=== PATIENT | female | born 1960 | race Caucasian/White ===

== ENCOUNTER → 2017-01-12 06:03 | Day surgery (SDC) | payer BC ==
--- NOTE | 2017-01-09 23:05 | HP ---
HISTORY AND PHYSICAL: DATE OF ADMISSION/SURGERY: 01/12/17 SURGEON: Suzanne Jain MD PROCEDURE: Left knee arthroscopy with partial medial meniscectomy, possible chondroplasty, possible synovectomy. The surgery is scheduled for 01/12/[address] Jain. PAST MEDICAL HISTORY: Migraines, chronic fatigue, questionable thyroid disease. PAST SURGICAL HISTORY: , sinus surgery, right tibia fracture surgery. CURRENT MEDICATIONS: 1. Mobic. 2. Flexeril. 3. Axert. 4. [place]. 5. Climara patch. 6. Progesterone. 7. [place] Thyroid. 8. Naltrexone. ALLERGIES: None. FAMILY HISTORY: Hypertension and high cholesterol. SOCIAL HISTORY: She is a 56-year-old female. She is . She works in [employer]. 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 She uses alcohol socially. REVIEW OF SYSTEMS: A complete 14-point review of systems was reviewed with the patient and all was negative or noncontributory. PHYSICAL EXAMINATION GENERAL: She is well developed, well nourished, in no acute distress. VITAL SIGNS: She stands 5 feet 8 inches tall, weighs 210 pounds. Her blood pressure is 114/82 and heart rate 78. HEENT: Normocephalic, atraumatic. NECK: Supple. No palpable lymph nodes. Trachea is midline. PULMONARY: The lungs are clear to auscultation bilaterally. No wheezes, rhonchi, or rales. CARDIO: Regular rate and rhythm. Strong S1, S2. No murmurs, gallops, or rubs. No peripheral edema. ABDOMEN: Soft, nontender, nondistended. NEUROLOGICAL: She is alert and oriented x3. Cranial nerves II through XII are intact. MUSCULOSKELETAL: Left lower extremity: The skin is intact. There is a mild joint effusion. Tenderness over the medial joint line. All of her lower extremity muscle group strengths are intact at 5/5. She has intact sensation. She walks with a slightly antalgic-type gait favoring her left leg. DIAGNOSTIC STUDIES: An MRI of the left knee was completed, 12/20/16, which shows a medial meniscal tear with a fragment to the medial joint recess as well as a grade 1 MCL sprain and a small joint effusion. ASSESSMENT AND PLAN: Ms. Clark is a 56-year-old female with complaints of left knee pain. An MRI showed a left medial meniscus tear and she has elected to proceed with left knee arthroscopy with partial medial meniscectomy. The surgery is scheduled for 01/12/[address] Jain discussed the risks and benefits of the surgery at today's visit and all of her questions were answered. Percocet as well as Zofran were sent to her pharmacy for postoperative pain control and nausea. She will see Dr. Jain back 10 to 14 days after the surgery. EDSON LICEA [id number]/[facility] #: [id number] [facility] HOSPITALEkaterina
[~2017-01-12 06:03] MED LIST: Buffered Lidocaine 1% SYR 3ML* 3 ML/SYR SYRINGE INTRADERM ONE; Bupivacaine 0.5% SDV PF* 30 ML VIAL ONE; Dexamethasone IV* 4 MG/ML 1 ML (4 MG) ONE; EPINEPHrine AMP 1 MG/ML ONE; Famotidine IV* 10 MG/ML 2 ML (20 mg) IV ONE; Famotidine IV* 10 MG/ML 2 ML (20 mg) ONE; Gabapentin CAP(*) 300 MG ONE; Gabapentin CAP(*) 300 MG PO ONE; HYDROcodone/ACETAMIN 5-325 MG* 1 TAB ONE; KETAMINE HCL* 50 MG/ML 10 ML VIAL ONE; Ketorolac INJ* 30 MG/ML 1 ML VIAL ONE; Lidocaine 2% PF * 5 ML VIAL ONE; Midazolam* 1 MG/ML 5 ML VIAL (5 MG) ONE; Morphine INJ* 10 MG/ML 1 ML CARPUJECT ONE; Morphine INJ* 2 MG/ML 1 ML CARPUJECT IV PRN; Ondansetron INJ* 2 MG/ML VIAL ONE; PROCHLORPERAZINE INJ 5 MG/ML 2 ML VIAL IV PRN; Propofol* 10 MG/ML 20 ML BTL IV PUSH ONE; Scopolamine 1.5 mg* PATCH ONE; Scopolamine 1.5 mg* PATCH TRANSDERM ONE; Scopolamine PATCH Remove* 1 NOTE MISC PATCH OFF ONE; ceFAZolin 2 GM PREMIX (*) 2 GM/50 ML BAG IVPB ONE; fentaNYL* 50 MCG/ML 2 ML VIAL (100 MCG VIAL) ONE; methylPREDNISolone ACETATE 80* 80 MG/ML 1 ML VIAL ONE
[2017-01-12] MEDS: fentaNYL* 50 MCG/ML 2 ML VIAL (100 MCG VIAL) IV PRN ×2 (09:01→09:23)
[2017-01-12 10:50] VITALS: BP 123/76
--- NOTE | 2017-01-13 00:45 | OP ---
DATE OF OPERATION: 01/12/17 - [facility] DATE OF : 64 FAMILY SURGEON: Suzanne Jain MD [employer]PR[employer]ISER SUPERVISOR: EDSON Antoine ANESTHESIOLOGIST: Dr. Diana. ANESTHESIA: General. PRE-OP DIAGNOSIS: Left knee pain with medial meniscal tear and osteoarthritis. POST-OP DIAGNOSIS: Left knee displaced tear of the body of the medial meniscal and severe tricompartmental osteoarthritis. OPERATIVE PROCEDURE: Left knee arthroscopy with partial medial meniscectomy and anterior synovectomy COMPLICATIONS: None. SPECIMEN: None. ESTIMATED BLOOD LOSS: Less than 25 cc. BRIEF HISTORY/INDICATIONS: Ms. Clark is a 56-year-old female who had a twisting injury to her left knee resulting in severe pain. Conservative treatment including anti-inflammatories, pain medications, physical therapy, brace wear and intra- articular injections failed to relieve her pain. Symptoms were consistent with a medial meniscal tear, which was confirmed on MRI. Plain radiographs also indicated osteoarthritis. The patient elected to undergo left knee arthroscopy with partial medial meniscectomy and possible chondroplasty/synovectomy due to continued pain and decreased quality of life. She understood the risks of surgery included, but were not limited to bleeding, infection, damage to nearby structures, continued pain, need for further surgery , stroke, heart attack, blood clot, and . She wished to proceed. INTRAOPERATIVE FINDINGS: Intraoperatively, the patient was noted to have a large linear tear in the body of the medial meniscus, which was displaced and flipped posteriorly into the posteromedial joint recess. This involved the white-red and white-white zone of the meniscus. She was noted to have grade 3 and 4 [place] cartilage changes involving the medial femoral condyle and the medial compartment, medial and lateral facet of the patella as well as the trochlear groove in the patellofemoral compartment, and the lateral tibial plateau and lateral femoral condyle of the lateral compartment. DESCRIPTION OF PROCEDURE: Ms. Clark was identified in the preanesthesia unit. Her left lower extremity was marked as the correct operative side. Informed consent was signed and placed in the chart. The patient was taken to the operating room and placed under general anesthesia without difficulty. Left lower extremity was prepped and draped in the usual sterile fashion. Preop time-out was made to correctly identify the patient's side and site. Appropriate perioperative antibiotics were given within 1 hour of incision. A one-half centimeter anterolateral portal incision was made and carried down to the capsule with a 15 blade. Trocar was introduced. As soon as the light and water sources were turned on, there was immediate visualization of the suprapatellar pouch. The suprapatellar pouch had no obvious abnormality. The patellofemoral compartment had obvious grade 3 and 4 [place] cartilage changes involving the medial and lateral patellar facet. Visualization was made difficult by a large amount of anterior synovitis. Medial gutter had no loose body, but also a large amount of synovitis. Medial compartment was difficult to visualize, but there was an obvious displaced flipped fragment of the meniscus along the posteromedial joint. Medial compartment had grade 3 and 4 [place] cartilage changes involving the medial femoral condyle and along its weightbearing surface. ACL was difficult to visualize because of the anterior synovitis. [id number] position was unable to be performed due to decreased visualization due to anterior synovitis. Under direct visualization, a medial portal incision was made with a 15 blade. A shaver was introduced and an anterior synovectomy was performed. Any bleeding was controlled with radiofrequency ablation wand. This allowed a much improved view of the knee joint. Psswro-pw-mcza position showed grade 3 and 4 [place] cartilage changes along the lateral femoral condyle and lateral tibial plateau, but no obvious meniscal tear. A second tour of the joint was performed using a probe. No lateral meniscal tear was found. The flipped fragment of the medial meniscus was displaced back into the joint carefully with the probe. This was a long linear tear, which appeared to involve the white-red and a small portion of the red-red zone. This involved the main body of the medial meniscus. Straight biter as well as shutz biter and shaver were used to perform partial medial meniscectomy. A smooth border of the medial meniscus was obtained. This was further smoothed with the radiofrequency ablation wand. Further probing showed no other displaceable fragments of meniscus. At this point, the knee was copiously irrigated with sterile saline. All instruments were carefully removed. The incisions were closed using an interrupted 3-0 nylon suture. Intra-articular injection of 80 mg of Depo- Medrol and 6 cc of 0.25% Marcaine was placed in the knee joint. Sterile Xeroform, 4x4s and Webril were used to cover the incision. The Norman wrap and cold pack were placed over this. The patient's anesthesia was reversed without difficulty. She was taken to the PACU in stable condition. Intended weightbearing will be weightbearing as tolerated. Intended DVT prophylaxis will be aspirin. She will follow up in 2 weeks' time for suture removal. [id number]/[facility] #: [id number] MTDD
== END | disposition home or self-care (01) ==
LOC: OR 06:03
PROVIDERS: ATTEND Orthopaedic Surgery Adult Reconstructive Orthopaedic Surgery
DX: S83.242A Other tear of medial meniscus, current injury, left knee, initial encounter (principal); X50.1XXA Overexertion from prolonged static or awkward postures, initial encounter; Y92.9 Unspecified place or not applicable; Z79.1 Long term (current) use of non-steroidal anti-inflammatories (NSAID); M65.9 Synovitis and tenosynovitis, unspecified; M17.12 Unilateral primary osteoarthritis, left knee; M94.262 Chondromalacia, left knee; M22.42 Chondromalacia patellae, left knee; Z79.890 Hormone replacement therapy; R53.82 Chronic fatigue, unspecified
CPT/HCPCS: A9270-GY; J0171; J0690; J1040; J1100; J1885; J2250; J2270; J2405; J2704; J3010

== ENCOUNTER 2017-06-27 11:47 | Inpatient (IN) | payer BC ==
--- NOTE | 2017-06-20 14:50 | HP ---
HISTORY AND PHYSICAL: DATE OF OFFICE VISIT: 06/16/17 DATE OF SURGERY: 06/27/17 SURGEON: Suzanne Jain MD * (DICTATED BY EDSON LICEA) PROCEDURE: Right total knee arthroplasty. CHIEF COMPLAINT: Right knee pain. HISTORY OF PRESENT ILLNESS: Ms. Clark is a 56-year-old female with continued complaints of right knee pain. She has failed conservative management and has elected to proceed with a right total knee arthroplasty, which is scheduled for 06/27/[address] Jain. PAST MEDICAL HISTORY: Hypothyroidism, migraines. PAST SURGICAL HISTORY: , left knee arthroscopies, sinus surgery. CURRENT MEDICATIONS: 1. [place] Thyroid 30 mg daily. 2. Progesterone twice daily. 3. Climara patch. 4. Axert 12.5 mg. 5. Zyrtec, allergy. 6. L Glutamine. 7. Vitamin D. 8. Probiotic. 9. . 10. Dilaudid 2 mg. 11. . ALLERGIES: PERCOCET causing headaches and an upset stomach. FAMILY HISTORY: Diabetes and prostate cancer. SOCIAL HISTORY: She is a 56-year-old female, lives with her . 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 She uses occasional alcohol. REVIEW OF SYSTEMS: A complete 14-point review of systems was reviewed with the patient and was all negative except for thyroid disease. PHYSICAL EXAMINATION GENERAL: She is well developed, well nourished, in no acute distress. VITAL SIGNS: She stands 5 feet 8 inches tall, weighs 200 pounds, blood pressure is 109/76, heart rate is 81. HEENT: Normocephalic, atraumatic. NECK: Supple. No palpable lymph nodes. PULMONARY: Lungs are clear to auscultation bilaterally. CARDIO: Regular rate and rhythm. Strong S1, S2. ABDOMEN: Soft, nontender, nondistended. NEUROLOGIC: Alert and oriented x3. Cranial nerves II through XII are intact. MUSCULOSKELETAL: Right lower extremity, skin is intact. There are no open wounds or abrasions. There is a mild joint effusion. She has tenderness over the medial and lateral joint line. 2+ dorsalis pedis pulses. Intact sensation. Lower extremity muscle group strengths are intact at 5/5. ASSESSMENT AND PLAN: Ms. Clark is a 56-year-old female with continued complaints of right knee pain. She has failed conservative management and has elected to proceed with a right total knee arthroplasty, which is scheduled for 06/27/[address] Jain discussed the risks and benefits of the surgery at today's visit and all of her questions were answered. Dilaudid and Colace were sent to her pharmacy for postoperative pain control and Coumadin was sent for DVT prophylaxis. She will see Dr. Jain back 2 weeks after the surgery. EDSON LICEA [id number]/[facility] #: [id number] [facility] HOSPITALEkaterina
[~2017-06-27 11:47] MED LIST changes: +Buffered Lidocaine 0.9% SYRIN* 5 ML/SYR SYRINGE INTRADERM ONE; +Buffered Lidocaine 0.9% SYRIN* 5 ML/SYR SYRINGE ONE; -Buffered Lidocaine 1% SYR 3ML* 3 ML/SYR SYRINGE INTRADERM ONE; -Bupivacaine 0.5% SDV PF* 30 ML VIAL ONE; -Dexamethasone IV* 4 MG/ML 1 ML (4 MG) ONE; -EPINEPHrine AMP 1 MG/ML ONE; -Gabapentin CAP(*) 300 MG ONE; -Gabapentin CAP(*) 300 MG PO ONE; -HYDROcodone/ACETAMIN 5-325 MG* 1 TAB ONE; +HYDROmorphone* 1 MG/ML 1 ML SYR IV PRN; -KETAMINE HCL* 50 MG/ML 10 ML VIAL ONE; -Ketorolac INJ* 30 MG/ML 1 ML VIAL ONE; -Lidocaine 2% PF * 5 ML VIAL ONE; -Midazolam* 1 MG/ML 5 ML VIAL (5 MG) ONE; -Morphine INJ* 10 MG/ML 1 ML CARPUJECT ONE; -Morphine INJ* 2 MG/ML 1 ML CARPUJECT IV PRN; -Ondansetron INJ* 2 MG/ML VIAL ONE; -Propofol* 10 MG/ML 20 ML BTL IV PUSH ONE; -Scopolamine 1.5 mg* PATCH ONE; -Scopolamine 1.5 mg* PATCH TRANSDERM ONE; +Scopolamine 1.5 mg* PATCH TRANSDERM PRN; -Scopolamine PATCH Remove* 1 NOTE MISC PATCH OFF ONE; -ceFAZolin 2 GM PREMIX (*) 2 GM/50 ML BAG IVPB ONE; +ceFAZolin 2 GM PREMIX (*) 50 ML IVPB ONE; +fentaNYL* 50 MCG/ML 2 ML VIAL (100 MCG VIAL) IV PRN; -fentaNYL* 50 MCG/ML 2 ML VIAL (100 MCG VIAL) ONE; -methylPREDNISolone ACETATE 80* 80 MG/ML 1 ML VIAL ONE
[2017-06-27] MEDS ORDERED: KETAMINE HCL* 50 MG/ML 10 ML VIAL ONE (13:12)
[2017-06-27] MEDS ORDERED: Midazolam* 1 MG/ML 10 ML VIAL (10 MG) ONE (13:12)
[2017-06-27] MEDS ORDERED: Morphine PF AMP (0.5MG/ML)* 5 MG/10 ML AMP ONE (13:12)
[2017-06-27] MEDS ORDERED: fentaNYL* 50 MCG/ML 2 ML VIAL (100 MCG VIAL) ONE (13:12)
[2017-06-27] MEDS ORDERED: Ondansetron INJ* 2 MG/ML VIAL IV PRN (15:38)
[2017-06-27] MEDS ORDERED: EPHEDrine (Pressors)* 50 MG/ML VIAL IV PUSH PRN (15:38)
[2017-06-27] MEDS ORDERED: Lactated Ringers 500 ml BAG* 500 ML IV PRN (15:38)
[2017-06-27] MEDS ORDERED: Nalbuphine* 20 MG/ML 1 ML VIAL IV PRN (15:38)
[2017-06-27] MEDS ORDERED: Hetastarch in NS* 500 ML IV PRN (15:38)
[2017-06-27] MEDS ORDERED: PROCHLORPERAZINE INJ 5 MG/ML 2 ML VIAL IV PRN (15:38)
[2017-06-27] MEDS ORDERED: Ropivacaine 0.2% EPIDURAL* 200 MG/100 ML BAG EPIDURAL ONE (15:48)
[2017-06-27] MEDS ORDERED: Ropivacaine 0.2% EPIDURAL* 200 MG/100 ML BAG EPIDURAL SCH (16:00)
[2017-06-27] MEDS ORDERED: Hetastarch in NS* 500 ML IV ONE (16:31)
[2017-06-27] MEDS ORDERED: Phenylephrine INJ* 10 MG/ML 1 ML VIAL (10 MG) ONE (17:18)
[2017-06-27] MEDS ORDERED: Ondansetron INJ* 2 MG/ML VIAL ONE (17:18)
[2017-06-27] MEDS ORDERED: Dexamethasone IV* 4 MG/ML 1 ML (4 MG) ONE (17:18)
[2017-06-27] MEDS ORDERED: Lidocaine 2% PF * 5 ML VIAL ONE (17:18)
[2017-06-27] MEDS ORDERED: Propofol* 500 MG/50 ML BTL ONE (17:18)
[2017-06-27] MEDS ORDERED: Propofol* 10 MG/ML 20 ML BTL IV PUSH ONE (17:18)
[2017-06-27] MEDS ORDERED: Bupivacaine 0.5% SDV PF* 30 ML VIAL ONE (17:18)
[2017-06-27] MEDS ORDERED: Scopolamine 1.5 mg* PATCH ONE (17:18)
[2017-06-27] MEDS ORDERED: Bisacodyl SUPP* 10 MG SUPP PR PRN (17:32)
[2017-06-27] MEDS ORDERED: Polyethylene Glycol 3350* 17 GM PACKET PO PRN (17:38)
[2017-06-27] MEDS ORDERED: ALMOTRIPTAN 12.5 MG PO PRN (17:42)
[2017-06-27] MEDS ORDERED: PTO: LevoCETirizine TAB (NF) 5 MG TAB PO PRN (17:42)
[2017-06-27] MEDS ORDERED: Naloxone* 0.4 MG/ML 1 ML VIAL IV PRN (17:48)
[2017-06-27] MEDS ORDERED: Thyroid TAB* 30 MG PO SCH (18:00)
--- NOTE | 2017-06-27 18:39 | RAD ---
Indication: Immediate postop exam following RIGHT total knee replacement. Comparison: June 16, 2017 radiographs. Technique: Portable AP and cross table lateral views RIGHT knee. Report: Status post total knee replacement. Anterior surgical drain in place. Post-op fluid and gas is seen in the joint space and anterior subcutaneous tissues. Alignment is anatomic. No periprosthetic fracture evident. IMPRESSION: Unremarkable immediate postoperative appearance following RIGHT knee replacement.
[2017-06-27] MEDS: Magnesium Hydroxide LIQ* 30 ML UDC PO SCH (20:58)
[2017-06-27] MEDS ORDERED: Warfarin TAB(*) 6 MG PO ONE (21:00)
[2017-06-27] MEDS: Docusate CAP* 100 MG PO SCH (22:19)
[2017-06-27] MEDS: HYDROcodone/ACETAMIN 5-325 MG* 1 TAB PO PRN (22:19)
[2017-06-27] MEDS: PROGESTERONE TOPICAL SCH (22:34)
[2017-06-27] MEDS: ARMOUR THYROID 30 MG PO SCH (22:35)
[2017-06-27] MEDS: Ketorolac INJ* 30 MG/ML 1 ML VIAL IV PRN (22:43)
[2017-06-27] MEDS: ceFAZolin 1 GM VIAL(*) 1 GM in NS 0.9% 50 ML* 50 ML IVPB SCH (23:58)
--- NOTE | 2017-06-28 01:14 | CONS ---
CC: Dr. Suzanne Jain * CONSULTATION REPORT: DATE OF CONSULT: 06/27/17 REFERRING PHYSICIAN: Dr. Suzanne Jain. MY ATTENDING WHILE IN THE HOSPITAL: Dr. Chapin Steiner. (DICTATED BY EDSON LAMBERT) REASON FOR CONSULTATION: Comanagement of comorbid medical conditions. HISTORY OF PRESENT ILLNESS: Ms. Clark is a 56-year-old female with a past medical history significant for right knee osteoarthritis, hypothyroidism, and migraines. The patient is currently postop from a right total knee arthroplasty. The patient denies any pain at the moment. The patient states she feels pretty good except that she is shivering and she does not feel particularly cold. The patient denies any chest pain, shortness of breath, headache, dizziness, nausea, vomiting, or lightheadedness. The patient denies any increase in fatigue, decrease in exercise tolerance, swelling in her legs, or decrease in her exercise capacity in the time leading up to this surgery. The patient states that she gets migraines very infrequently and when she does have them, they resolve with Axert, but she was admitted to the hospital for intractable migraines last year and treated with a migraine cocktail including Reglan and Benadryl, which was effective for persistent migraines. The patient denies any abdominal pain, diarrhea, constipation, hematochezia, or changes in her urine, dysuria, or hematuria. The patient's migraines were precipitated by her previous sinus surgery. Patient has an AV malformation per previous records that does not need surgical intervention/ PAST MEDICAL HISTORY: Hypothyroidism, migraines. PAST SURGICAL HISTORY: , left knee arthroscopy, sinus surgery in right ear, right knee arthroplasty. CURRENT MEDICATION: 1. Garden of [place] raw probiotic 2 caps q.p.m. 2. L-glutamine 3000 mg p.o. b.i.d. 3. Barberry [place] grape 1000 unit capsules p.o. b.i.d. 4. Climara patch 0.1 mg daily. 5. Progesterone cream 60 mg 0.2 mL 0.1 mg topical b.i.d. 6. Xyzal 5 mg p.o. q.a.m. as needed. 7. Dilaudid 2 mg p.o. q.4 hours as needed. 8. Axert 12.5 mg p.o. b.i.d. as needed. 9. Flexeril 5 to 10 mg p.o. at bedtime as needed. 10. Futureplex DPRSN anti-tox 30 drops p.o. b.i.d. 11. [place] Thyroid 30 mg p.o. q.p.m. ALLERGIES: PERCOCET. FAMILY HISTORY: The patient denies a family history of cardiac disease. The patient attests to a family history of diabetes and prostate cancer. SOCIAL HISTORY: The patient is . 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 She uses alcohol infrequently. REVIEW OF SYSTEMS: The patient denies recent illnesses, fevers, chills. PHYSICAL EXAM: Vital Signs: Pulse rate 88, respiratory rate 18, oxygen saturation 100% on 2 L, blood pressure 120/78. General: The patient is a 56-year-old female that appears her stated age, who is sitting comfortably in the stretcher in the PACU. The patient is drowsy after her surgery. HEENT: Head is atraumatic and normocephalic. Pupils are equal, round, and reactive to light. Sclerae anicteric. Pharynx is nonerythematous. Mucous membranes moist. Neck: Supple. No lymphadenopathy. Cardiac: Regular rate and rhythm. No clicks, murmurs, gallops, or rubs. Radial posterior tibialis and dorsal pedis pulses 2+ bilaterally. No edema of the lower extremities. No carotid bruit auscultated. Respiratory: Clear to auscultation bilaterally. No wheezes, rales, or rhonchi. Good air exchange bilaterally. Abdomen: Soft, nontender, nondistended. Bowel sounds are normoactive in all 4 quadrants. No abdominal bruits auscultated. No hepatosplenomegaly. : No suprapubic tenderness. Skin: [place], dry, intact. Surgical site is covered by a large bandage and is unable to be assessed at this time. Neuro: Cranial nerves II to XII grossly intact. Sweatband Flanger strength is 5/5 bilaterally. The patient is unable to move lower extremity due to spinal anesthesia. DIAGNOSTIC STUDIES/LAB DATA: Laboratory results from 06/16/17, white blood cell 5.7, hemoglobin 14.5, hematocrit 43, platelets 167. INR 0.85, APTT 28.5. Sodium 136, potassium 4.2, chloride 106, carbon dioxide 27, anion gap 3, BUN 13 , creatinine 0.88, glucose 77, AST 18, ALT 20. Urine, yellow, clear, all negative. EKG shows normal sinus rhythm, early repolarization in lead V2, no other abnormalities of note. Chest x-ray read as no active cardiopulmonary disease. IMPRESSION: The patient is a 56-year-old female with a past medical history significant for hypothyroidism and migraines, who is currently postoperative from a total knee arthroplasty. The patient is in good health and is not currently in any distress. We will continue home medications to manage her chronic problems. 1. Postoperative state: The patient is in no pain and shows no signs of deep venous thrombosis. The patient is normotensive. We will continue pain control per primary team, antibiotics per primary team, bowel regimen per primary team, antiemetics per primary team. 2. Hypothyroidism: The patient is on 30 mg [place] Thyroid daily. She brought this medication with her and it will be continued in the hospital. 3. Migraines: The patient gets migraines infrequently, but has her home Axert ordered if needed. We will also order Reglan and Benadryl if Axert is not effective for migraines if they occur. 4. DVT prophylaxis: The patient is on Lovenox and is being started on Coumadin. SCDs are in place. 5. FEN: Per primary team. The patient is receiving lactated Ringer's at a rate of 125 mL an hour and is on clear liquids, advance as tolerated. 6. Code status: The patient is a full code. 7. Disposition: The patient will be transferred to the short-stay surgical care unit. TIME SPENT: Approximately 40 minutes were spent on this consult; 20 of which were spent [id number] with patient obtaining history and physical. EDSON LAMBERT [id number]/[facility] #: [id number] [place]
[2017-06-28] MEDS: HYDROcodone/ACETAMIN 5-325 MG* 1 TAB PO PRN ×2 (01:25→04:48)
[2017-06-28] MEDS ORDERED: HYDROmorphone TAB* 4 MG ONE (03:58)
--- NOTE | 2017-06-28 05:33 | OP ---
CONTINUATION ADDENDUM INCLUDED ON THIS REPORT DATE OF SURGERY: 06/27/17 - ROOM #342 DATE OF : 64 ATTENDING SURGEON: Suzanne Jain MD WINDOW GLASS INSTALLER: EDSON Cristina. Ms. Maddox did help throughout the procedure with preparation of the leg, wound retraction, manipulation of the knee and wound closure. ANESTHESIOLOGIST: Dr. Diana. ANESTHESIA: Spinal. PRE-OP DIAGNOSIS: Severe end-stage degenerative osteoarthritis of the right knee joint. POST-OP DIAGNOSIS: As above. OPERATIVE PROCEDURE: Right total knee arthroplasty. TOURNIQUET TIME: 49 minutes. ESTIMATED BLOOD LOSS: 250 cc. COMPLICATIONS: None. SPECIMENS: Bone and cartilage from the right knee joint sent to Pathology. HARDWARE USED: This is cemented [employer] total knee hardware. Two packages of Simplex bone cement. For the femur, a size 6 narrow right posterior stabilized Oxinium narrow femoral component. For the tibia, size 5 Mallory II right tibial base plate. For the patella, 35 mm 3 peg all poly patella. For the insert, a 11-mm posterior stabilized articular insert, size 5/ 6. CONTINUATION ADDENDUM: INDICATIONS: Ms. Clark is a 56-year-old female with years of increasingly severe right knee pain. Her plain radio-graphs and MRI confirmed advanced tricompartmental degenerative osteoarthritis of her knee. She failed conservative treatment with antiinflammatories, pain medications, and intraarticular injections. She had decreased quality of life and severe pain. She elected to undergo right total knee arthroplasty. Informed consent was obtained from the patient. She understood the risks of procedure included, but were not limited to bleeding, infection, damage to nearby structures, continued pain, need for further surgery, intraoperative fracture, nerve palsy, hardware failure and loosening, knee stiffness, loss of motion, stroke, heart attack, blood clot, and . She wished to proceed. The patient understood that due to her young age, she is at risk of early loosening and failure of the implant. She wished to proceed. INTRAOPERATIVE FINDINGS: Intraoperatively, the patient was noted to have osteopenia throughout the procedure. She has full thickness loss of cartilage in all 3 compartments of the knee. She had a 12-degree valgus deformity and 5- degree flexion contracture at the start of the case. These are both corrected to normal range of motion and alignment by the end of case. DESCRIPTION OF PROCEDURE: Ms. Clark was identified in the preanesthesia unit. Her right lower extremity was marked as the correct operative side. Informed consent was signed and placed in the chart. The patient was taken to the operating room and placed under spinal anesthesia. A Hunter catheter was placed. Tourniquet was placed on the right thigh. The right lower extremity was prepped and draped in the usual sterile fashion. Preop time-out was made to correctly identify the patient's side and site. Appropriate preoperative antibiotics were given within 1 hour of incision. Tourniquet was inflated until the tourniquet time for this procedure was 49 minutes. A 12-cm midline skin incision was made with a 10 blade and carried down to the extensor mechanism. A new 10 blade was used to make a standard medial parapatellar arthrotomy. Patella was subluxed laterally. The electrocautery was used to subperiosteally elevate soft tissue off the superomedial tibia to the midsagittal plane. The knee was flexed up. The anterior horn of the lateral meniscus and the ACL were sharply released. A drill was used to enter the distal femur. Intramedullary distal femoral cutting guide was pinned into proper position on the distal femur. Oscillating saw was used to make the distal femoral cut. 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 Next, the external rotational guide was pinned on the distal femur. Distal femur was sized to a size 6. Size 6 multi-cutting jig was pinned on the distal femur. The oscillating saw was used to make the appropriate 4 chamfer cuts. The PCL was completely released and the tibia was subluxed anteriorly. The extramedullary tibial cutting guide was pinned on the proximal tibia. The oscillating saw was used to make the appropriate proximal tibial cut. The bone was carefully removed. The knee was brought out into full extension. A spacer block had good fit with good medial and lateral ligamentous balancing. Flexion and extension gaps are well balanced. The knee was flexed up. Lamina mounter brass wind instruments was placed both medially and laterally. Any remaining meniscus was carefully removed using electrocautery. Any posterior osteophytes were removed using a curved osteotome. Tibial tray and drop gordy was placed to once again confirm a satisfactory proximal tibial cut. This was confirmed and alignment was satisfactory. A size 6 narrow right femoral trial was impacted on to the distal femur and had good fit. The box for the posterior stabilized implant was prepared using a reamer and box cut osteotome. A trial size 5 tibial tray and 5-mm insert trial were placed. The knee was taken through range of motion and was stable in all positions with full extension and 130 degrees of flexion. There was satisfactory patellofemoral tracking. The patella was everted. 9 mm of patellar bone and cartilage were carefully removed using an oscillating saw. The patella was sized to a size 35. The 3- peg holes were drilled through the size 35 guide. A trial 35 patella was placed and the knee was taken through a range of motion. The knee had good patellofemoral tracking. All trials were carefully removed. The tibia was subluxed anteriorly and sized to a size 5. Proximal tibia was prepared using a size 5 keel punch. Next, all bony cut surfaces were copiously irrigated with sterile saline and dried. Final implants were cemented into place starting with the tibia followed by the femur and lastly the patella. An 11-mm insert trial was placed while the knee was brought out into full extension. The tourniquet was turned down at 49 minutes. The cement was allowed to fully cure and the knee was copiously irrigated with sterile saline. Once the cement had fully cured, the insert trial was removed. Any excess cement was carefully removed from around the implant and capsule. Electrocautery was used to obtain meticulous hemostasis. Final insert was chosen was an 11-mm posterior stabilized insert, size 5/6. This was locked into position on the tibial tray without difficulty. Stability of the insert was checked and rechecked and noted to be stable. Final range of motion was full extension to 130 degrees of flexion with satisfactory patellofemoral tracking. The knee was once again copiously irrigated with sterile saline. The extensor mechanism was closed using interrupted #1 Vicryl's over a medium Hemovac drain. The rest of the incision was closed in a layered fashion using 0 and 2-0 Vicryl's. The skin was closed using running 3-0 nylon suture. Sterile Xeroform, 4x4's, and Webril were used to cover the incision. Norman wrap and cold pack were placed over this. The patient's anesthesia was reversed without difficulty. She was taken to the PACU in stable condition. Intended weightbearing will be weightbearing as tolerated. Intended DVT prophylaxis will be Coumadin with a Lovenox bridge. [id number]/CPS #: [id number] A- [id number]/CPS #: [id number] [facility]
--- NOTE | 2017-06-28 05:41 | OP ---
OPERATIVE REPORT: ADDENDUM: INDICATIONS: Ms. Clark is a 56-year-old female with years of increasingly severe right knee pain. Her plain radiographs and MRI confirmed advanced tricompartmental degenerative osteoarthritis of her knee. She failed conservative treatment with antiinflammatories, pain medications, and intraarticular injections. She had decreased quality of life . She elected to undergo right total knee arthroplasty. Informed consent was obtained from the patient. She understood the risks of procedure included, but were not limited to bleeding, infection, damage to nearby structures, continued pain, need for further surgery, intraoperative fracture, nerve palsy, hardware failure and loosening, knee stiffness, loss of motion, stroke, heart attack, blood clot, and . She wished to proceed. The patient understood that due to her young age, she is at risk of early loosening and failure to . She wished to proceed. INTRAOPERATIVE FINDINGS: Intraoperatively, the patient was noted to have osteopenia throughout the procedure. She has full thickness loss of cartilage in all 3 compartments of the knee. She had a 12-degree valgus deformity and 5- degree flexion contracture at the start of the case. These are both corrected to normal range of motion and alignment by the end of case. DESCRIPTION OF PROCEDURE: Ms. Clark was identified in the preanesthesia unit. Her right lower extremity was marked as the correct operative side. Informed consent was signed and placed in the chart. The patient was taken to the operating room and placed under spinal anesthesia. A Hunter catheter was placed. Tourniquet was placed on the right thigh. The right lower extremity was prepped and draped in the usual sterile fashion. Preop time-out was made to correctly identify the patient's side and site. Appropriate preoperative antibiotics were given within 1 hour of incision. Tourniquet was inflated until the tourniquet time for this procedure was 49 minutes. A 12-cm midline skin incision was made with a 10 blade and carried down to the extensor mechanism. A new 10 blade was used to make a standard medial parapatellar arthrotomy. Patella was subluxed laterally. The electrocautery was used to subperiosteally elevate soft tissue off the superomedial tibia to the midsagittal plane. The knee was flexed up. The anterior horn of the lateral meniscus and the ACL were sharply released. A drill was used to enter the distal femur. Intramedullary distal femoral cutting guide was pinned into proper position on the distal femur. Oscillating saw was used to make the distal femoral cut. 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 Next, the external rotational guide was pinned on the distal femur. Distal femur was sized to a size 6. Size 6 multi-cutting jig was pinned on the distal femur. The oscillating saw was used to make the appropriate 4 chamfer cuts. The PCL was completely released and the tibia was subluxed anteriorly. The extramedullary tibial cutting guide was pinned on the proximal tibia. The oscillating saw was used to make the appropriate proximal tibial cut. The bone was carefully removed. The knee was brought out into full extension. A spacer block had good fit with good medial and lateral ligamentous balancing. Flexion and extension gaps are well balanced. The knee was flexed up. Lamina branch operations specialist was placed both medially and laterally. Any remaining meniscus was carefully removed using electrocautery. Any posterior osteophytes were removed using a curved osteotome. Tibial tray and drop gordy was placed to once again confirm a satisfactory proximal tibial cut. This was confirmed and alignment was satisfactory. A size 6 narrow right femoral trial was impacted on to the distal femur and had good fit. The box for the posterior stabilized implant was prepared using a reamer and box cut osteotome. A trial size 5 tibial tray and 5-mm insert trial were placed. The knee was taken through range of motion and was stable in all positions with full extension and 130 degrees of flexion. There was satisfactory patellofemoral tracking. The patella was everted. 9 mm of patellar bone and cartilage were carefully removed using an oscillating saw. The patella was sized to a size 35. The 3- peg holes were drilled through the size 35 guide. A trial 35 patella was placed and the knee was taken through a range of motion. The knee had good patellofemoral tracking. All trials were carefully removed. The tibia was subluxed anteriorly and sized to a size 5. Proximal tibia was prepared using a size 5 keel punch. Next, all bony cut surfaces were copiously irrigated with sterile saline and dried. Final implants were cemented into place starting with the tibia followed by the femur and lastly the patella. An 11-mm insert trial was placed while the knee was brought out into full extension. The tourniquet was turned down at 49 minutes. The cement was allowed to fully cure and the knee was copiously irrigated with sterile saline. Once the cement had fully cured, the insert trial was removed. Any excess cement was carefully removed from around the implant and capsule. Electrocautery was used to obtain meticulous hemostasis. Final insert was chosen was an 11-mm posterior stabilized insert, size 5/6. This was locked into position on the tibial tray without difficulty. Stability of the insert was checked and rechecked and noted to be stable. Final range of motion was full extension to 130 degrees of flexion with satisfactory patellofemoral tracking. The knee was once again copiously irrigated with sterile saline. The extensor mechanism was closed using interrupted #1 Vicryl's over a medium Hemovac drain. The rest of the incision was closed in a layered fashion using 0 and 2-0 Vicryl's. The skin was closed using running 3-0 nylon suture. Sterile Xeroform, 4x4's, and Webril were used to cover the incision. Norman wrap and cold pack were placed over this. The patient's anesthesia was reversed without difficulty. She was taken to the PACU in stable condition. Intended weightbearing will be weightbearing as tolerated. Intended DVT prophylaxis will be Coumadin with a Lovenox bridge. [id number]/[facility] #: [id number] [place]
[2017-06-28] MEDS ORDERED: Ondansetron TAB* 4 MG PO PRN (06:00)
[2017-06-28] MEDS ORDERED: Ondansetron INJ* 2 MG/ML VIAL IV PRN (06:00)
[2017-06-28 07:11] LABS: Hematocrit 28 % (35-47); Hemoglobin 9.4 g/dl (12.0-16.0)
[2017-06-28 07:27] LABS: BUN/Creatinine Ratio 14.3 (8-20); Calcium 8.2 mg/dL (8.6-10.3); EGFR African American 90.9 (>60); EGFR Non-African American 70.7 (>60); Potassium 4.2 mmol/L (3.5-5.0)
[2017-06-28] MEDS: Ketorolac INJ* 30 MG/ML 1 ML VIAL IV PRN ×2 (07:44→16:10)
[2017-06-28] MEDS: ceFAZolin 1 GM VIAL(*) 1 GM in NS 0.9% 50 ML* 50 ML IVPB SCH ×2 (08:31→16:05)
[2017-06-28] MEDS: Magnesium Hydroxide LIQ* 30 ML UDC PO SCH ×2 (08:32→21:41)
[2017-06-28] MEDS: Docusate CAP* 100 MG PO SCH ×2 (08:32→21:40)
[2017-06-28] MEDS: PROGESTERONE TOPICAL SCH ×2 (08:33→21:46)
[2017-06-28] MEDS ORDERED: ESTRADIOL TRANSDERM SCH (09:00)
[2017-06-28] MEDS ORDERED: [UNRECOGNIZED DRUG - OTHER] TRANSDERM SCH (09:00)
--- NOTE | 2017-06-28 09:14 | PN ---
Progress Note - Progress Note Date of Service: 06/28/17 Note: Anesthesia duramorph folowup. Alert, VSS, epidural out neuro and site ok. Had pain last PM, oral dilaudid helped. s/p TKR continue oral meds..
--- NOTE | 2017-06-28 09:41 | PN ---
Progress Note - Progress Note Date of Service: 06/28/17 SOAP: Subjective: []Patient seen OOB in chair, doing well, pain right knee well managed. Denies, CP, SOB or dizziness. Objective: [] Vital Signs Temp 98.4 F 06/28/17 07:27 Pulse 62 06/28/17 07:27 Resp 14 06/28/17 08:00 BP 102/58 06/28/17 07:27 Pulse Ox 99 06/28/17 08:00 Intake & Output 06/27/17 06/28/17 06/28/17 18:59 06:59 18:59 Intake Total 50 2133 225 Output Total 1300 2150 Balance -1249 225 Weight 201 lb 12.8 oz Intake: IV Fluids 50 630 CEFAZOLIN 2GM IV 50 LR 630 IVPB 53 ABX - CEFAZOLIN 53 Oral 1450 225 Output: Hemovac Amount #1 350 Hunter 950 2150 Laboratory Results - last 24 hr 06/28/17 06/28/17 06/28/17 06:42 06:42 06:42 Hgb 9.4 L Hct 28 L INR (Anticoag Therapy) 1.06 Sodium 137 Potassium 4.2 Chloride 105 Carbon Dioxide 28 Anion Gap 4 BUN 12 Creatinine 0.84 Est GFR ( Amer) 90.9 Est GFR (Non-Af Amer) 70.7 BUN/Creatinine Ratio 14.3 Glucose 144 H Calcium 8.2 L Right knee hemovac drain discontinued without difficulty, tip intact YAHAIRA clean and dry calf NT and soft +DF/PF right ankle sensation and circulation intact distally Assessment: []s/p Right total knee arthroplasty POD #1 Plan: []PT/OT WBAT RLE Coumadin with Lovenox bridge- 8 mg today Discussed osteoporotic bone quality- await Vit D levels, she will suppliment with Calcium w Vit D as an outpatient and w/d with PCP, consider DEXA scan in future
[2017-06-28] MEDS: Morphine TAB Extended Release (*) 30 MG TAB.ER PO SCH ×2 (09:42→21:40)
[2017-06-28] MEDS ORDERED: HYDROmorphone TAB* 2 MG PO PRN (10:00)
[2017-06-28] MEDS ORDERED: diPHENhydraMINE PO* 25 MG PO PRN (10:00)
[2017-06-28] MEDS ORDERED: HYDROmorphone TAB* 4 MG PO PRN (10:00)
[2017-06-28] MEDS ORDERED: diPHENhydraMINE IV* 50 MG/ML 1 ml VIAL (BENADRYL) IV PRN (10:00)
[2017-06-28] MEDS: HYDROmorphone TAB* 4 MG PO PRN ×2 (10:47→15:16)
[2017-06-28] MEDS ORDERED: Warfarin TAB(*) 4 MG PO ONE (17:00)
[2017-06-28] MEDS: Morphine INJ* 10 MG/ML 1 ML SYRINGE IV PRN (17:51)
[2017-06-28] MEDS ORDERED: Enoxaparin(*) 30 MG/0.3 ML SYR SUBCUT SCH (18:00)
[2017-06-28] MEDS: ARMOUR THYROID 30 MG PO SCH (18:02)
[2017-06-28] MEDS: Cyclobenzaprine TAB* 10 MG PO PRN (21:40)
[2017-06-28] MEDS: HYDROmorphone TAB* 2 MG PO PRN (23:50)
[2017-06-29] MEDS: Ketorolac INJ* 30 MG/ML 1 ML VIAL IV PRN (03:39)
[2017-06-29 06:15] LABS: Hematocrit 23 % (35-47)
[2017-06-29 06:16] LABS: Comments Flag Yes
[2017-06-29] MEDS: Magnesium Hydroxide LIQ* 30 ML UDC PO SCH ×2 (08:11→20:35)
[2017-06-29] MEDS: Morphine TAB Extended Release (*) 30 MG TAB.ER PO SCH ×2 (08:11→20:35)
[2017-06-29] MEDS: Docusate CAP* 100 MG PO SCH ×2 (08:12→20:35)
[2017-06-29] MEDS: HYDROmorphone TAB* 4 MG PO PRN (08:12)
[2017-06-29] MEDS: PROGESTERONE TOPICAL SCH ×2 (08:15→20:36)
[2017-06-29] MEDS: Morphine INJ* 10 MG/ML 1 ML SYRINGE IV PRN (09:01)
--- NOTE | 2017-06-29 09:34 | PN ---
Progress Note - Progress Note Date of Service: 06/29/17 SOAP: Subjective: []Patient seen at bedside, having increased right knee and quad pain this morning. Denies SOB, CP or dizziness. Objective: [] Vital Signs Temp 99.5 F 06/29/17 08:03 Pulse 94 06/29/17 08:03 Resp 18 06/29/17 09:01 BP 91/56 06/29/17 08:03 Pulse Ox 95 06/29/17 08:03 Intake & Output 06/28/17 06/29/17 06/29/17 18:59 06:59 18:59 Intake Total 2325 1700 Output Total 1325 1750 Balance 1000 -50 Intake: IV Fluids 1360 ABX - CEFAZOLIN 110 LR 1250 Oral 965 1700 Output: Urine 1000 1750 Hunter 325 Other: # Bowel Movements 0 Laboratory Results - last 24 hr 06/29/17 06/29/17 05:41 05:41 Hgb 8.0 L Hct 23 L INR (Anticoag Therapy) 2.17 H right knee dressings were removed earlier by Dr. Jain and reportedly benign calf NT and soft +DF/PF right ankle sensation and circulation intact distally Assessment: []s/p RTK POD #2 Plan: []PT/OT WBAT RLE Coumadin Home later today if feeling better, otherwise 06/30
[2017-06-29] MEDS: Cyclobenzaprine TAB* 10 MG PO PRN (12:09)
[2017-06-29] MEDS ORDERED: Cyclobenzaprine TAB* 10 MG PO PRN (12:09)
[2017-06-29] MEDS: HYDROmorphone TAB* 2 MG PO PRN (13:02)
[2017-06-29] MEDS: Acetaminophen TAB* 325 MG PO PRN (17:41)
[2017-06-29] MEDS: ARMOUR THYROID 30 MG PO SCH (17:41)
[2017-06-29] MEDS ORDERED: Ketorolac INJ* 30 MG/ML 1 ML VIAL IV PUSH PRN (22:00)
[2017-06-30] MEDS: HYDROmorphone TAB* 2 MG PO PRN ×2 (02:15→09:09)
[2017-06-30] MEDS: Acetaminophen TAB* 325 MG PO PRN (03:29)
[2017-06-30] MEDS ORDERED: Scopolomine PATCH Remove* 1 NOTE MISC PATCH OFF ONE ×2 (05:54→15:42)
[2017-06-30 07:02] LABS: Hematocrit 26 % (35-47); Hemoglobin 8.9 g/dl (12.0-16.0)
[2017-06-30] MEDS: Docusate CAP* 100 MG PO SCH (07:42)
[2017-06-30] MEDS: Morphine TAB Extended Release (*) 30 MG TAB.ER PO SCH (07:42)
[2017-06-30] MEDS: Magnesium Hydroxide LIQ* 30 ML UDC PO SCH (07:43)
[2017-06-30] MEDS: PROGESTERONE TOPICAL SCH (07:44)
--- NOTE | 2017-06-30 09:43 | PN ---
Progress Note - Progress Note Date of Service: 06/30/17 SOAP: Subjective: []Patient seen OOB in chair. She is feeling much better today. Her pain is much more manageable. She feels ready to go home today. Objective: [] Laboratory Results - last 24 hr 06/29/17 06/30/17 06/30/17 05:38 06:47 06:47 Hgb 8.9 L Hct 26 L INR (Anticoag Therapy) 2.67 H Blood Type A Positive Antibody Screen Negative Crossmatch See Detail Vital Signs Temp 98.7 F 06/30/17 07:29 Pulse 98 06/30/17 07:29 Resp 16 06/30/17 09:09 BP 99/55 06/30/17 07:29 Pulse Ox 93 06/30/17 07:29 Intake & Output 06/29/17 06/30/17 06/30/17 18:59 06:59 18:59 Intake Total 1535 1810 100 Output Total 900 2100 300 Balance 635 -290 -200 Intake: IV Fluids 75 NS (0.9%) 75 Oral 1160 1810 100 Packed Cells 300 Output: Urine 900 2100 300 Other: Estimated Void Medium # Bowel Movements 0 # Voids 1 Right knee incision benign calf NT and soft +DF/PF right ankle Assessment: []s/p RTK POD #3 Plan: []PT/OT WBAT Stop Coumadin and discharge home on ASA 325 mg BID Follow up as scheduled with
[2017-06-30 11:44] LABS: Urine Bacteria Absent (Absent); Urine Bilirubin Negative (Negative); Urine Glucose Negative (Negative); Urine Nitrite Negative (Negative)
[2017-06-30 11:52] VITALS: BP 112/63
--- NOTE | 2017-07-01 00:54 | DS ---
DISCHARGE SUMMARY: DATE OF ADMISSION: 06/27/17 DATE OF DISCHARGE: 06/30/17 ATTENDING PHYSICIAN: Suzanne Jain MD * (DICTATED BY EDSON CONDE) ADMISSION DIAGNOSIS: Severe end-stage degenerative osteoarthritis, right knee. DISCHARGE DIAGNOSES: 1. Severe end-stage degenerative osteoarthritis, right knee. 2. Acute postoperative anemia. SURGERY PERFORMED: Right total knee arthroplasty. HOSPITAL COURSE: The patient is a 56-year-old female with years of increasingly right severe knee pain. Her MRI confirmed advanced tricompartmental degenerative osteoarthritis of her knee. The patient tried anti-inflammatories, pain medications, and intra-articular cortisone injections , which were not helpful emt intermediate. She elected to proceed with right total knee arthroplasty and was taken to the operating room under the care of Dr. Suzanne Jain on the date of 06/27/17. She tolerated the procedure well and left the operating room in stable condition. Postoperatively on day #2, she felt slightly dizzy and weak. She had a borderline hemoglobin and hematocrit and was transfused with one unit of packed red blood cells. She did feel much better on postop day #3 with an improved hemoglobin of 8.9 and hematocrit of 26. Her pain was also all much improved and she mastered all of her physical therapy and occupational therapy goals. Therefore, it was felt she was stable medically and orthopedically for discharge to home on the date of 06/30/17. CONDITION ON DISCHARGE: She is afebrile at 98.7, pulse 98, respiratory rate 14 , O2 sats 9%3 on room air, blood pressure 99/55. Her right knee incision is healing without evidence of infection. Her calf is soft and nontender. Her gross neurovascular status is intact. She has active dorsiflexion and plantarflexion of her right ankle. PLAN: Discharge to home bearing weight as tolerated on the right lower extremity. She will participate with physical therapy and it was decided that she would use ibuprofen or Aleve to help manage her pain. Therefore, we will discontinue the Coumadin for her DVT prophylaxis and switch her to aspirin 325 mg p.o. b.i.d. She is scheduled to follow up in the office in roughly 10 to 14 days for reevaluation. She will call the office if she has increased knee pain, any drainage redness, increased swelling, calf pain or swelling. EDSON CONDE [id number]/[facility] #: [id number] [facility] CENTEREkaterina
== END 2017-06-30 13:15 | disposition home health service (06) | DRG 302 ==
LOC: AA 11:47 → SSU 20:34
PROVIDERS: ADMIT Orthopaedic Surgery Adult Reconstructive Orthopaedic Surgery; ATTEND Orthopaedic Surgery Adult Reconstructive Orthopaedic Surgery
PROC: 0SRC0J9 Replacement of Right Knee Joint with Synthetic Substitute, Cemented, Open Approach (ICD-10-PCS; principal; 2017-06-27 14:15)
PROC: 30233N1 Transfusion of Nonautologous Red Blood Cells into Peripheral Vein, Percutaneous Approach (ICD-10-PCS; 2017-06-29)
DX: M17.11 Unilateral primary osteoarthritis, right knee (principal); D62 Acute posthemorrhagic anemia; E03.9 Hypothyroidism, unspecified; M85.80 Other specified disorders of bone density and structure, unspecified site; M21.061 Valgus deformity, not elsewhere classified, right knee; G43.909 Migraine, unspecified, not intractable, without status migrainosus; Z88.8 Allergy status to other drugs, medicaments and biological substances; Z79.82 Long term (current) use of aspirin; Z83.3 Family history of diabetes mellitus; Z80.42 Family history of malignant neoplasm of prostate; Z72.89 Other problems related to lifestyle
CPT/HCPCS: 36415; 80048; 81003; 81015; 81025; 82652; 85014; 85018; 85610; 86850; 86900; 86901; 86922; 87086; 94760; A9270-GY; C1776; J0690; J1100; J1650; J1885; J2250; J2270; J2405; J2704; J2795; J3010; P9040

== ENCOUNTER 2019-03-19 06:57 | Inpatient (IN) | payer BC, OTHER ==
--- NOTE | 2019-03-09 12:02 | HP ---
Amended report to enter cosigning physician. PREOPERATIVE HISTORY AND PHYSICAL EXAMINATION: DATE OF OFFICE VISIT: 03/08/19 DATE OF SURGERY: 03/19/19 ATTENDING PHYSICIAN: Dr. Suzanne Jain* (dictated by EDSON Cristina). PROCEDURE: Left total knee arthroplasty. CHIEF COMPLAINT: Left knee pain. HISTORY OF PRESENT ILLNESS: Ms. Clark is a 58-year-old female with complaints of left knee pain. She had prior right total knee arthroplasty and has done well with that. Due to failure of conservative management, she has elected to proceed with left total knee arthroplasty, which is scheduled with Dr. Jain utilizing the [employer] Robot on 03/19/19. PAST MEDICAL HISTORY: Significant for hypothyroidism, remote Lyme disease, migraine headaches, osteoarthritis. PAST SURGICAL HISTORY: , right tibia fracture, sinus surgery, right total knee arthroplasty 06/25/17, endometrial resection surgery. MEDICATIONS: 1. LIP OF SHANK CUTTER Thyroid 60 mg p.o. daily. 2. Naltrexone 3 mg p.o. q.a.m. 3. Rizatriptan benzoate 10 mg 1 tab as needed for migraines. 4. Micronized progesterone 100 mg p.o. at bedtime. 5. Estradiol patch 0.375 mg every Monday. 6. Cyclobenzaprine 5 mg 1 to 2 as needed at bedtime p.r.n. muscles spasm. 7. Jyes-ify-onnwwew supplements, Licorice Plus 300 mg tablet b.i.d. 8. Boswellia Complex MediHerb 4 times daily. 9. Super EPA/Juan Luis 2 daily. 10. Stress B-complex 2 daily. 11. Vitamin D Mist 6 sprays daily. 12. Vitamin K one daily. 13. Vitamin C 2 tablets daily. 14. Rhinocort allergy spray 2 sprays each nostril daily. 15. Xyzal allergy pill 1 p.o. q.24 hours. 16. OsteoBalance supplement 4 daily. 17. Andrographis plus 2 to 8 tablets daily p.r.n. FAMILY HISTORY: Maternal grandmother with breast cancer and CVA as well as hypertension. SOCIAL HISTORY: The patient lives with her . 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 She does not use tobacco or recreational drugs. She drinks 2 to 3 alcoholic beverages per week. REVIEW OF SYSTEMS: 14-point review of systems reviewed with the patient today. Positive for intermittent shortness of breath and recent diarrhea. PHYSICAL EXAMINATION GENERAL: She is alert and oriented x3, in no acute distress. Pleasant and cooperative. VITAL SIGNS: She is 5 feet 8 inches tall, 220 pounds, pulse 80, BP 120/82. HEENT: PERRLA. NECK: Supple. LUNGS: Clear to auscultation. HEART: Regular rate and rhythm. No murmur auscultated. ABDOMEN: Soft, nontender. Normoactive bowel sounds x4 quadrants. MUSCULOSKELETAL: Left lower extremity reveals her skin to be intact without open lesions or abrasions. She has a mild limp. Her motion is from 0 to 120 degrees. She had medial joint line tenderness. Her calf is soft and nontender. She has active dorsiflexion of the left ankle. ASSESSMENT AND PLAN: Ms. Clark is a 58-year-old female with end-stage osteoarthritis of her left knee. She has failed conservative management and has elected to proceed with left total knee arthroplasty scheduled on 03/19/[address] Jain discussed the risks and benefits of surgery at today's visit and all of her questions were answered. She will follow up with Dr. Jain 2 weeks postoperatively. EDSON CRISTINA [id number]/[facility] #: [id number] MTDD
[~2019-03-19 06:57] MED LIST changes: +Acetaminophen IV 1GM/100ML * 1,000 MG/100 ML VIAL IVPB ONE; -Buffered Lidocaine 0.9% SYRIN* 5 ML/SYR SYRINGE INTRADERM ONE; -Buffered Lidocaine 0.9% SYRIN* 5 ML/SYR SYRINGE ONE; +Dexamethasone IV* 4 MG/ML 1 ML (4 MG) IV SLOW PU ONE; -Famotidine IV* 10 MG/ML 2 ML (20 mg) ONE; +Gabapentin CAP(*) 300 MG PO ONE; -HYDROmorphone* 1 MG/ML 1 ML SYR IV PRN; +Lactated Ringers 1000 ML Bag* 1,000 ML IV SCH; -PROCHLORPERAZINE INJ 5 MG/ML 2 ML VIAL IV PRN; -Scopolamine 1.5 mg* PATCH TRANSDERM PRN; +Tranexamic Acid 1,000 MG in NS 0.9% 50 ML* (outpatient use) IV SCH; -ceFAZolin 2 GM PREMIX (*) 50 ML IVPB ONE; +celeCOXIB CAP* 200 MG PO ONE; -fentaNYL* 50 MCG/ML 2 ML VIAL (100 MCG VIAL) IV PRN
--- OUTSIDE RECORDS SUMMARY | 2019-03-19 07:03 | XMS REPORT | Continuity of Care Document ---
:1960 External Reference #:[id number] Author Name Toya Stallworth Care Team Providers Name Role Phone Jessica Mckeon MD Primary Care Physician Unavailable Payers Date Identification Numbers Payment Provider Subscriber Policy Number: [id number] Carr/[employer] Medicaid Lina Clark PayID: [id number] [address] [address] [place] [address] Advance Directives Description No Information Available Problems Active Problems Provider Date Localized, primary osteoarthritis Suzanne Jain M.D. Onset: 11/28/2016 Arthroplasty of knee Suzanne Jain M.D. 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 Tobacco Use Start: Unknown Never Smoked Cigarettes Smoking Status Reviewed: 02/22/19 Never Smoked Cigarettes ETOH Use Currently consumes alcohol 2-3/week Tobacco Use Start: Unknown Patient has never smoked Exercise Type/Frequency Exercises sporadically Allergies, Adverse Reactions, Alerts Active Allergies Reaction Severity Comments Date Percocet 12/12/2016 Inactive Allergies NKDA 11/28/2016 NKDA 02/22/2019 Medications Active Medications SIG Qnty Indications Ordering Date Provider Progesterone take one capsule 30caps N95.9 Patti 02/19/2019 Micronized every night at [facility] 200mg Capsules bedtime Estradiol apply one patch 1units Patti 11/22/2018 0.075mg/24HR weekly [facility] Patches Weekly Naltrexone HCL 3 mg compounded in 30cap Patti 11/22/2018 Powder capsules one [facility] capsule daily Vitamin C Plus Juan Luis Vitamin C Patti 11/22/2018 500mg [facility] Tablets Vitamin D3 [place] Patti 11/22/2018 [place] [facility] Atp Fuel Patti 11/22/2018 [facility] Energy Multi-Plex Patti 11/22/2018 [facility] Breana Romm Sylva Patti 11/22/2018 Soothe Drops [facility] Cyclobenzaprine HCL 1-2 tables q 8 hrs Unknown 5mg prn pain Tablets [employer]ATOR Thyroid take 1 tablets by Unknown 60mg Tablets mouth once daily Vitamin K2 1 by mouth every Unknown 100mcg day Capsules Prolamine Iodine Unknown [place] 3 500 Euromega [place]-3 Unknown 500mg Capsules Boswellia Candy Unknown Extract Powder Licorice Root Metagenics Licorice Unknown Powder Plus Stress 500 B-Complex Unknown Tablets Maxalt-CROP FARMERS 1 every 2 hours ( Unknown 5mg Tablets max 3 per day ) Dispers Xyzal Allergy 24HR Unknown 5mg Tablets Calcium Osteobalance - 4 Unknown per day Tylenol 2 tablets every 4 Unknown 325mg Tablets hours as needed pain Vitamin D Unknown History Medications [employer]ATOR Thyroid Take 3 tablets by 90tabs Gaurang Barnes, 01/18/2019 - 60mg Tablets mouth once daily 01/21/2019 [employer]ATOR Thyroid take 3 tablets by 90tabs Patti 11/22/2018 - 60mg Tablets mouth once daily Nancy, 01/21/2019 [facility] Progesterone Micronized one tablet by 30caps Patti 11/22/2018 - mouth every night Nancy, 02/19/2019 100mg Capsules at bedtime [facility] Cyclobenzaprine HCL 1 tablet by mouth 30tabs M25.461 Suzanne Jain, 2016 - 10mg q8 hours as M.D. 11/22/2018 Tablets needed muscle spasms Ondansetron HCL 1 tablet by mouth 30tabs Suzanne Jain, 06/30/2017 - 4mg Tablets q8 hours as M.D. 08/06/2017 needed nausea please use odt Ondansetron HCL 1 tablet by mouth 30tabs Suzanne Jain, 06/30/2017 - 4mg Tablets q8 hours as M.D. 06/30/2017 needed nausea MS Contin 1 po q12h prn 30tabs Suzanne Jain, 06/30/2017 - 30mg Tablets ER M.D. 06/23/2017 Coumadin take 1-3 tabs by 90tabs Suzanne Jain, 06/16/2017 - 2mg Tablets mouth at 5 at M.D. 08/06/2017 night as directed. do not fill until 06/25/17. Stool Softener 1 by mouth 2-3 90caps Suzanne Jain, 06/16/2017 - 100mg times daily while M.D. 09/17/2017 Capsules on narcotic pain medication Dilaudid 1-2 tabs by mouth 60tabs Suzanne Jain, 01/12/2017 - 2mg Tablets every 6 hours as M.D. 09/17/2017 needed for post-op pain. Percocet 1-2 by mouth 60tabs Suzanne Jain, 01/09/2017 - 5-325mg Tablets every 4-6 hours M.D. 01/12/2017 as needed pain Zofran take 1 by mouth 14tabs Suzanne Jain, 01/09/2017 - 4mg Tablets twice a day as M.D. 02/21/2017 needed for nausea Oxycodone-Acetaminophen 1-2 by mouth 90tabs M25.562 Suzanne Jain, 2016 - every 4-6 hours M.D. 12/11/2016 5-325mg Tablets as needed for pain. Meloxicam 1 by mouth every 60tabs M25.561 Suzanne Jain, 11/28/2016 - 15mg Tablets day M.D. 06/15/2017 Medial Bleacher Pulp Brace - dx - severe varus 1units M25.561 Suzanne Jain, 03/2017 - Right Knee r knee oa wear M.D. 06/15/2017 with prolonged ambulation Sonata 1 by mouth at Unknown - 10mg Capsules bedtime as needed 02/19/2019 sleep Zoloft 1 by mouth every Unknown - 25mg Tablets day 02/19/2019 Iron Unknown - 11/22/2018 Bio Align Wellness 0-2 capsules Unknown - Formula daily 11/22/2018 Futureplex DPRSN For Sadd / Unknown - Antitax Homeopathic general 11/22/2018 Formula depression. Approx 30gtts 2x daily Cyclobenzaprine HCL take one tablet Unknown - 5mg by mouth every 8 07/10/2017 Tablets hours prn. may take a second tablet if first not effetive. Berberine Unknown - Capsules 11/22/2018 Probiotic Unknown - 11/22/2018 L-Glutamine Unknown - 6000mg Capsules 11/22/2018 Xyzal Unknown - 11/22/2018 Zyrtec Allergy Unknown - 06/15/2017 Cyclobenzaprine HCL Unknown - 5mg 06/15/2017 Tablets Axert Unknown - 12.5mg Tablets 11/22/2018 Hydrocodone-Acetaminoph 1-2 tabs by mouth Unknown - en every 4- 6 hours 02/22/2017 5-325mg Tablets as needed pain [place] Patch Unknown - 11/22/2018 Progesterone twice daily Unknown - Cream 11/22/2018 [place] Thyroid 1 by mouth every Unknown - 30mg Tablets day 11/22/2018 Naltrexone HCL Unknown - 3mg 06/15/2017 Medications Administered in Office Medication SIG Qnty Indications Ordering Provider Date Depomedrol 40MG Suzanne Jain M.D. 02/22/2017 Injection Depomedrol 40MG Suzanne Jain M.D. 12/05/2016 Injection Immunizations Description No Information Available Vital Signs Date Vital Result Comment 02/22/2019 9:20am Height 68 inches 5'8" Weight 215.00 lb Heart Rate 92 /min BP Systolic 104 mmHg BP Diastolic 70 mmHg Pain Level 7 BMI (Body Mass Index) 32.7 kg/m2 02/19/2019 8:27am Height 68 inches 5'8" Weight 217.00 lb Heart Rate 86 /min BP Systolic 110 mmHg BP Diastolic 78 mmHg Body Temperature 97.9 F O2 % BldC Oximetry 97 % BMI (Body Mass Index) 33.0 kg/m2 11/22/2018 9:00am Height 68 inches 5'8" Weight 216.00 lb Heart Rate 77 /min BP Systolic 119 mmHg BP Diastolic 79 mmHg O2 % BldC Oximetry 97 % BMI (Body Mass Index) 32.8 kg/m2 12/06/2017 4:04pm Height 68 inches 5'8" Heart Rate 93 /min BP Systolic 108 mmHg BP Diastolic 78 mmHg Respiratory Rate 16 /min Body Temperature 98.3 F Pain Level 5 09/18/2017 10:53am Height 68 inches 5'8" Weight 190.00 lb Heart Rate 88 /min BP Systolic 110 mmHg BP Diastolic 64 mmHg Pain Level 2 BMI (Body Mass Index) 28.9 kg/m2 08/07/2017 10:48am Height 68 inches 5'8" Heart Rate 91 /min BP Systolic 106 mmHg BP Diastolic 79 mmHg Body Temperature 97.8 F Pain Level 3 07/10/2017 1:17pm Height 68 inches 5'8" Weight 203.00 lb Heart Rate 120 /min BP Systolic 110 mmHg BP Diastolic 70 mmHg Body Temperature 99.0 F Pain Level 2 BMI (Body Mass Index) 30.9 kg/m2 06/16/2017 1:19pm Height 68 inches 5'8" Weight 203.00 lb Heart Rate 81 /min BP Systolic 109 mmHg BP Diastolic 76 mmHg Body Temperature 97.5 F BMI (Body Mass Index) 30.9 kg/m2 05/24/2017 2:02pm Height 68 inches 5'8" Weight 200.00 lb BP Systolic 124 mmHg BP Diastolic 72 mmHg Respiratory Rate 15 /min Pain Level 7 BMI (Body Mass Index) 30.4 kg/m2 04/14/2017 1:22pm Height 68 inches 5'8" Weight 210.00 lb Heart Rate 80 /min BP Systolic 128 mmHg BP Diastolic 80 mmHg Respiratory Rate 16 /min Body Temperature 97.1 F Pain Level 0 BMI (Body Mass Index) 31.9 kg/m2 03/24/2017 2:51pm Height 68 inches 5'8" Heart Rate 86 /min BP Systolic 120 mmHg BP Diastolic 84 mmHg Body Temperature 97.5 F 02/22/2017 9:37am Height 68 inches 5'8" Weight 210.00 lb Heart Rate 82 /min BP Systolic 115 mmHg BP Diastolic 78 mmHg Body Temperature 97.3 F Pain Level 8 BMI (Body Mass Index) 31.9 kg/m2 01/25/2017 9:21am Height 68 inches 5'8" Weight 210.00 lb Heart Rate 76 /min BP Systolic 122 mmHg BP Diastolic 73 mmHg Respiratory Rate 16 /min Body Temperature 96.9 F Pain Level 0 BMI (Body Mass Index) 31.9 kg/m2 01/09/2017 8:17am Height 68 inches 5'8" Weight 210.00 lb Heart Rate 78 /min BP Systolic 114 mmHg BP Diastolic 82 mmHg Respiratory Rate 16 /min Body Temperature 96.5 F BMI (Body Mass Index) 31.9 kg/m2 12/12/2016 11:35am Height 67.75 inches 5'7.75" Weight 210.00 lb Heart Rate 82 /min BP Systolic 111 mmHg BP Diastolic 77 mmHg Pain Level 5 BMI (Body Mass Index) 32.2 kg/m2 12/05/2016 1:44pm Height 67.75 inches 5'7.75" Weight 220.00 lb Heart Rate 109 /min BP Systolic 129 mmHg BP Diastolic 87 mmHg BMI (Body Mass Index) 33.7 kg/m2 11/28/2016 10:55am Height 67.75 inches 5'7.75" Weight 220.00 lb Heart Rate 80 /min BP Systolic 110 mmHg BP Diastolic 74 mmHg BMI (Body Mass Index) 33.7 kg/m2 Results Test Date Facility Test Result H/L Range Note Laboratory test 10/15/2018 [facility] Progesterone 1.5 ng/mL [address] [place] [address] [phone] Estradiol 48 pg/mL 2 FSH (Follicle Stim Hormone) 109.9 mIU/mL 3 CBC No Diff 06/16/2017 [facility] White Blood 5.7 10^3/uL N 3.5-10.[address] [place] [address] [phone] Red Blood Count 4.87 10^6/uL N 4.0-5.4 Hemoglobin 14.5 g/dL N 12.0-16.0 Hematocrit 43 % N 35-47 Mean Corpuscular Volume 89 fL N 80-97 Mean Corpuscular Hemoglobin 30 pg N 27-31 Mean Corpuscular HGB Conc 34 g/dL N 31-36 Red Cell Distribution Width 13 % N 10.5-15 Platelet Count 167 10^3/uL N 150-450 Mean Platelet Volume 10 um3 N 7.4-10.4 Comp Metabolic Panel 06/16/2017 [facility] Sodium 136 mmol/L N 133-145 [address] [place] [address] [phone] Potassium 4.2 mmol/L N 3.5-5.0 Chloride 106 mmol/L N 101-111 Co2 Carbon Dioxide 27 mmol/L N 22-32 Anion Gap 3 mmol/L N 2-11 Glucose 77 mg/dL N 70-100 Blood Urea Nitrogen 13 mg/dL N 6-24 Creatinine 0.88 mg/dL N 0.51-0.95 BUN/Creatinine Ratio 14.8 N 8-20 Calcium 9.6 mg/dL N 8.6-10.3 Total Protein 6.8 g/dL N 6.4-8.9 Albumin 4.3 g/dL N 3.2-5.2 Globulin 2.5 g/dL N 2-4 Albumin/Globulin Ratio 1.7 N 1-3 Total Bilirubin 0.50 mg/dL N 0.2-1.0 Alkaline Phosphatase 66 U/L N 34-104 Alt 20 U/L N 7-52 Ast 18 U/L N 13-39 Egfr Non- 67.0 N >60 Egfr 86.1 N >60 4 Urinalysis Profile 06/16/2017 [facility] Urine Color Yellow [address] [place] [address] [phone] Urine Appearance Clear N Urine Specific [place] 1.013 N 1.010-1.030 Urine pH 5.0 N 5-9 Urine Urobilinogen Negative N Negative Urine Ketones Negative N Negative Urine Protein Negative N Negative Urine Leukocytes Negative N Negative Urine Blood Negative N Negative Urine Nitrite Negative N Negative Urine Bilirubin Negative N Negative Urine Glucose Negative N Negative Inr/Protime 06/16/2017 [facility] Inr 0.85 Low 0.89-1.[address] [place] [address] [phone] Laboratory test 06/16/2017 [facility] Partial 28.5 seconds N 26.0-36.[address] [place] [address] Time PTT [phone] Type & Screen 06/16/2017 [facility] Patient A Positive N [address] [place] [address] [phone] Antibody Screen NEGATIVE N Urine Culture And 06/16/2017 [facility] Urine Culture SEE RESULT [address] [place] [address] [phone] Xray 11/28/2016 [facility] Knee 3 Views <pending> [address] [place], [place] [id number] [phone] 1 Female reference ranges for Progesterone: Follicular phase.......0.3 - 1.5 ng/ml Mid-luteal phase.......5.2 - 18.5 ng/ml Postmenopausal.........< 0.8 ng/ml 1st trimester.........4.7 - 50.0 ng/ml 2nd trimester.........19.4 - 45.3 ng/ml 2 Estradiols <40 pg/mL are sent to a reference lab for low range testing. Postmenopausal Females < 20 Ovulating females: by day in cycle relative to LH Peak Follicular phase - 12 10-50 - 4 60-200 Mid-cycle - 1 120-375 Luteal phase + 2 50-155 + 6 60-260 + 12 15-115 3 Normally menstruating females - Follicular phase 3 - 9 - Mid-cycle peak 4 - 23 - Luteal phase 1 - 6 Postmenopausal females 16 - 114 4 Because ethnic data is not always readily available, this report includes an eGFR for both -Americans and non- Americans. The National Kidney Disease Education Program (NKDEP) does not endorse the use of the MDRD equation for patients that are not between the ages of 18 and 70, are , have extremes of body size, muscle mass, or nutritional status, or are non- or non-. According to the National Kidney Foundation, irrespective of diagnosis, the stage of the disease is based on the level of kidney function: Stage Description GFR(mL/min/1.73 m(2)) 1 Kidney damage with normal or decreased GFR 90 2 Kidney damage with mild decrease in GFR 60-89 3 Moderate decrease in GFR 30-59 4 Severe decrease in GFR 15-29 5 Kidney failure <15 (or dialysis) 5 SEE RESULT BELOW Name: LINA CLARK : [address]: Suzanne Jain MD Acct: [id number] Unit: [id number] AGE: 56 Location: [facility] Re06/16/17 SEX: F Status: REG REF SPEC: [id number] BRAYAN: 06/16/17-[address] [facility] [address]: Suzanne Jain MD REQ: [id number] RECD: 06/16/17 STATUS: COMP _ SOURCE: URINE SPDESC: ORDERED: Urine Culture QUERIES: Urine Source: Clean Catch Procedure Result Reported Site Urine Culture Final 06/18/17- 0909 ML No Growth (<1,000 CFU/mL) * ML - MAIN LAB ([facility]) . END OF REPORT * ML=Testing performed at Main Lab DEPARTMENT OF PATHOLOGY, [address] [place] [address] Luis Alberto Vela M.D. Director [facility] # [id number] Procedures Date Code Description Status 11/20/2018 36049214 Colonoscopy Completed 06/27/2017 92141 TKR Total Knee Replacement Completed 06/27/2017 37301 TKR Total Knee Replacement Completed 06/16/2017 12841 EKG, Interpretation Only Completed 05/18/2017 76180526 Mammogram Completed 02/22/2017 00391 Inject/Drain Joint/Bursa Major W/O US Completed 01/12/2017 22450 Arthroscopy,Knee,Meniscectomy Medial Or Lateral Completed 01/12/2017 98440 Arthroscopy,Knee,Meniscectomy Medial Or Lateral Completed 12/05/2016 69633 Inject/Drain Joint/Bursa Major W/O US Completed Encounters Type Date Location Provider Dx Diagnosis [facility] Patti N95.9 Unspecified menopausal 8:30a [facility] and perimenopausal disorder E03.9 Hypothyroidism, unspecified R53.82 Chronic fatigue, unspecified Z79.890 Hormone replacement therapy G43.009 Migraine w/o aura, not intractable, w/o status migrainosus Office Visit 12/06/2017 3:[facility] Suzanne Jain, M25.561 Pain in right Of C.M.A. M.D. knee Z47.1 Aftercare following joint replacement surgery Z96.651 Presence of right artificial knee joint S83.421A Sprain of lateral collateral ligament of right knee, init Office Visit 06/27/2017 [facility] Z98.890 Other specified 11:10a [facility] states E03.9 Hypothyroidism, unspecified G43.909 Migraine, unsp, not intractable, without status migrainosus Office Visit 05/24/2017 2:00p [facility] Suzanne Jain, M25.561 Pain in right Of C.M.A. M.D. knee M25.461 Effusion, right knee M17.11 Unilateral primary osteoarthritis, right knee Office Visit 04/14/2017 1:15p [facility] Suzanne Jain, M25.562 Pain in left Of C.M.A. M.D. knee M25.462 Effusion, left knee M17.12 Unilateral primary osteoarthritis, left knee Office Visit 12/12/2016 11:45a [facility] Suzanne Jain, M25.562 Pain in left Of C.M.A. M.D. knee M25.462 Effusion, left knee M17.12 Unilateral primary osteoarthritis, left knee S83.412A Sprain of medial collateral ligament of left knee, init Office Visit 12/05/2016 1:45p [facility] Suzanne Jain, M25.562 Pain in left Of C.M.A. M.D. knee M25.462 Effusion, left knee M17.12 Unilateral primary osteoarthritis, left knee S83.412A Sprain of medial collateral ligament of left knee, init Office Visit 11/28/2016 11:00a [facility] Suzanne Jain M25.561 Pain in right Of C.M.A. M.D. knee M25.461 Effusion, right knee M17.11 Unilateral primary osteoarthritis, right knee Plan of Treatment Future Appointment(s):03/08/2019 9:00 am - Suz[facility] M[facility]05/21/2019 10:00 am - [facility]02/22/2019 - Suzanne Jain M.D.M25.562 Pain in left kneeNew Xrays: Knee 3 Views LT, Ordered: 02/22/19Follow up:Follow up: 7-10 days before toiehusA60.462 Effusion, left kneeM17.12 Unilateral primary osteoarthritis, left knee
--- OUTSIDE RECORDS SUMMARY | 2019-03-19 07:03 | XMS REPORT | Continuity of Care Document ---
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 Tobacco Use Start: Unknown Never Smoked Cigarettes Smoking Status Reviewed: 02/19/19 Never Smoked Cigarettes ETOH Use Currently consumes alcohol 2-3/week Tobacco Use Start: Unknown Patient has never smoked Exercise Type/Frequency Exercises sporadically Allergies, Adverse Reactions, Alerts Active Allergies Reaction Severity Comments Date NKDA 11/22/2018 Percocet 12/12/2016 Inactive Allergies NKDA 11/28/2016 Medications Active Medications SIG Qnty Indications Ordering Date Provider Progesterone take one capsule 30caps N95.9 Patti 02/19/2019 Micronized every night at EDSON Cruz 200mg bedtime Capsules Estradiol apply one patch 1units Patti 11/22/2018 weekly EDSON Cruz 0.075mg/24HR Patches Weekly Naltrexone HCL 3 mg compounded in 15gm Patti 11/22/2018 capsules by mouth EDSON Cruz Powder every day Vitamin C Plus Juan Luis Vitamin C Patti 11/22/2018 500mg EDSON Cruz Tablets Vitamin D3 [place] Patti 11/22/2018 [place] EDSON Cruz Atp Fuel Patti 11/22/2018 EDSON Cruz Energy [facility] Patti 11/22/2018 EDSON Cruz Breana Romm [place] Patti 11/22/2018 Soothe Drops EDSON Cruz RENEWABLE ENERGY CONSULTANT Thyroid take 1 tablets by Unknown 60mg mouth once daily Tablets Vitamin K2 1 by mouth every day Unknown 100mcg Capsules Prolamine Iodine Unknown [place] 3 500 Euromega [place]-3 Unknown 500mg Capsules Boswellia Candy Unknown Extract Powder Licorice Root Metagenics Licorice Unknown Powder Plus Stress 500 B-Complex Unknown Tablets Maxalt-EXPLORATION GEOLOGIST 1 every 2 hours ( Unknown 5mg max 3 per day ) Tablets Dispers Xyzal Allergy 24HR Unknown 5mg Tablets Calcium Osteobalance - 4 per Unknown day Tylenol 2 tablets every 4 Unknown 325mg Tablets hours as needed pain Vitamin D Unknown History Medications RENEWABLE ENERGY CONSULTANT Thyroid Take 3 tablets by 90tabs Gaurang Barnes, 01/18/2019 - 60mg Tablets mouth once daily 01/21/2019 RENEWABLE ENERGY CONSULTANT Thyroid take 3 tablets by 90tabs Patti [...] - 15mg Tablets day M.D. 06/15/2017 Medial Cardiac Cath Lab Manager Brace - dx - severe varus 1units [...] Progesterone twice daily Unknown - Cream 11/22/2018 [place] Thyroid 1 by mouth every Unknown - 30mg Tablets day 11/22/2018 Naltrexone HCL Unknown - 3mg 06/15/2017 Medications Administered in Office Medication SIG Qnty Indications Ordering Provider Date Depomedrol 40MG Suzanne Jain M.D. 02/22/2017 Injection Depomedrol 40MG Suzanne Jain M.D. 12/05/2016 Injection Immunizations Description No Information Available Vital Signs Date Vital Result Comment 02/19/2019 8:27am Height 68 inches 5'8" Weight [...] Result H/L Range Note Laboratory test 10/15/2018 [facility] Progesterone 1.5 ng/mL [address] [place] [address] [phone] Estradiol 48 pg/mL 2 FSH (Follicle Stim Hormone) 109.9 mIU/mL 3 CBC No Diff 06/16/2017 [facility] White Blood 5.7 10^3/uL N 3.5-10.[address] [place] [address] [phone] Red Blood Count 4.87 10^6/uL N 4.0-5.4 [...] um3 N 7.4-10.4 Comp Metabolic Panel 06/16/2017 [facility] Sodium 136 mmol/L N 133-145 [address] [place] [address] [phone] Potassium 4.2 mmol/L N 3.5-5.0 Chloride 106 [...] 86.1 N >60 4 Urinalysis Profile 06/16/2017 [facility] Urine Color Yellow N [address] [place] [address] [phone] Urine Appearance Clear N Urine Specific [place] 1.013 N 1.010-1.030 Urine pH 5.0 N 5-9 Urine Urobilinogen Negative N Negative Urine Ketones Negative N Negative Urine Protein Negative N Negative Urine Leukocytes Negative N Negative Urine Blood Negative N Negative Urine Nitrite Negative N Negative Urine Bilirubin Negative N Negative Urine Glucose Negative N Negative Inr/Protime 06/16/2017 [facility] Inr 0.85 Low 0.89-1.11 [address] [place] [address] [phone] Laboratory test 06/16/2017 [facility] Partial 28.5 seconds N 26.0-36.3 finding [address] [facility] [place] [place] [address] Time PTT [phone] Type & Screen 06/16/2017 [facility] Patient A Positive N [address] [place] [address] [phone] Antibody Screen NEGATIVE N Urine Culture And 06/16/2017 [facility] Urine Culture SEE RESULT [address] BELOW [place] [address] [phone] Xray 11/28/2016 [facility] Knee 3 Views <pending> [address] [place] [address] [phone] 1 Female reference ranges for Progesterone: Follicular [...] [address]: Suzanne Jain MD Acct: [id number] Unit: [id number] AGE: 56 Location: PAT Re06/16/17 SEX: F Status: REG REF SPEC: [id number] BRAYAN: 06/16/17-[address]: Suzanne Jain MD REQ: [id number] RECD: 06/16/17 STATUS: COMP _ SOURCE: URINE SPDESC: ORDERED: Urine Culture QUERIES: Urine Source: Clean Catch Procedure Result Reported Site Urine Culture Final 06/18/17- 0909 ML No Growth (<1,000 CFU/mL) * ML - MAIN LAB (PSC1) . END OF REPORT * ML=Testing performed at Main Lab DEPARTMENT OF PATHOLOGY, [address] [place] [address] Luis Alberto Vela M.D. Director [facility] # [id number] Procedures Date Code Description Status 11/20/2018 [id number] Colonoscopy Completed 06/27/2017 06267 TKR Total Knee Replacement Completed 06/27/2017 11462 TKR Total Knee Replacement Completed 06/16/2017 16952 EKG, Interpretation Only Completed 05/18/2017 [id number] Mammogram Completed 02/22/2017 52600 Inject/Drain Joint/Bursa Major W/O US Completed 01/12/2017 18450 Arthroscopy,Knee,Meniscectomy Medial Or Lateral Completed 01/12/2017 28912 Arthroscopy,Knee,Meniscectomy Medial Or Lateral Completed 12/05/2016 48121 Inject/Drain Joint/Bursa Major W/O US Completed Encounters Type Date Location Provider Dx Diagnosis Office Visit 11/22/2018 [facility] Patti N95.9 Unspecified menopausal 8:30a Clinic of [...] of right knee, init Office Visit 06/27/2017 [facility] Z98.890 Other specified 11:10a Assyessenia chau [place] postprocedural Hospitalists states E03.9 Hypothyroidism, unspecified G43.909 [...] Office Visit 11/28/2016 11:00a [facility] Suzanne Jain, M25.561 Pain in right [facility] M.D. knee M25.461 Effusion, right knee M17.11 Unilateral primary osteoarthritis, right knee Plan of Treatment Future Appointment(s):05/21/2019 10:00 am - EDSON Campos at [facility]02/22/2019 9:00 am - Suzanne Jain M.D. at [facility]/19/2019 - Patti Cruz PAN95.9 Unspecified menopausal and perimenopausal disorderNew Medication:Progesterone Micronized 200 mg - take one capsule every night at bedtimeFollow up:see me in 3 months, sooner as neededRecommendations:get your mammogram please.E03.9 Hypothyroidism, gjbzytxioqkN13.82 Chronic fatigue, unspecifiedRecommendations:The [place] herbal protocol is Dr. Reese's Vital Restore Plan. also consider Infrared Sauna, Far or Near. listen to Cornel Dial's podcasts on sauna [employer] is one company , good rep continue Ketogenic!! [email or web address] [place] for mail order mails we discussed your L knee arthritis and the benefits of not deferring the surgery.
--- OUTSIDE RECORDS SUMMARY | 2019-03-19 07:03 | XMS REPORT | Continuity of Care Document ---
:1960 External Reference #:[id number] Author Name Casandra Ferreira Care Team Providers Name Role Phone Jessica Mckeon MD Primary Care Physician Unavailable Payers Date Identification Numbers Payment Provider Subscriber Policy Number: [id number] [employer] Medicaid Lina Clark PayID: [id number] [address] [address] [place] [address] Policy Number: [id number] [facility] Jean Clark PayID: [id number] [address] [address] [place] [address] Problems Active Problems Provider Date Localized, primary osteoarthritis Suzanne Jain M.D. Onset: 11/28/2016 Arthroplasty of knee Suzanne Jani M.D. 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 Tobacco Use Start: Unknown Never Smoked Cigarettes Smoking Status Reviewed: 03/08/19 Never Smoked Cigarettes ETOH Use Currently consumes alcohol 2-3/week Tobacco Use Start: Unknown Patient has never smoked Exercise Type/Frequency Exercises sporadically Allergies, Adverse Reactions, Alerts Active Allergies Reaction Severity Comments Date Percocet 12/12/2016 Inactive Allergies NKDA 11/28/2016 NKDA 02/22/2019 Medications Active Medications SIG Qnty Indications Ordering Date Provider E-Poise Standard Suzanne Jain, 03/08/2019 Hemant Sheikh Progesterone Micronized take one capsule 30caps N95.9 Patti 02/19/2019 every night at EDSON Cruz 200mg Capsules bedtime Estradiol apply one patch 1units Patti 11/22/2018 0.075mg/24HR weekly EDSON Cruz Patches Weekly Naltrexone HCL 3 mg compounded 30cap Patti 11/22/2018 Powder in capsules one EDSON Cruz capsule daily Vitamin C Plus Juan Luis Vitamin C Patti 11/22/2018 500mg EDSON Cruz Tablets Vitamin D3 [place] Patti 11/22/2018 [place] EDSON Cruz Atp Fuel Patti 11/22/2018 EDSON Cruz Andrograhis Plus Unknown Osteobalance Unknown Rhinocort Allergy 1 puff each nare Unknown 32mcg/Act every in the Suspension morning Super Epa-Juan Luis Unknown Cyclobenzaprine HCL 1-2 tables q 8 Unknown 5mg hrs prn pain Tablets 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 Thyroid take 1 tablets by Unknown 60mg Tablets mouth once daily Vitamin K2 1 by mouth every Unknown 100mcg Capsules day Boswellia Candy Unknown Extract Powder Licorice Root Metagenics Unknown Powder Licorice Plus Stress 500 B-Complex Unknown Tablets Maxalt-MERCHANT MILLER 1 every 2 hours ( Unknown 10mg Tablets max 3 per day ) Dispers Xyzal Allergy 24HR Unknown 5mg Tablets Vitamin D Unknown History Medications 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 Thyroid Take 3 tablets by 90tabs Gaurang Barnes, 01/18/2019 - 60mg Tablets mouth once daily 01/21/2019 Breana Batres Jamieson Patti 11/22/2018 - Soothe Drops [facility], 03/07/2019 EDSON [employer] [facility] Patti 11/22/2018 - Nancy, 03/07/2019 [place] Progesterone one tablet by mouth 30caps Patti 11/22/2018 - Micronized every night at [facility], 02/19/2019 100mg Capsules bedtime PA 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 Thyroid take 3 tablets by 90tabs Patti 11/22/2018 - 60mg Tablets mouth once daily Nancy, 01/21/2019 [place] Cyclobenzaprine HCL 1 tablet by mouth 30tabs M25.461 Suzanne Jain, 2016 - 10mg q8 hours as needed M.D. 11/22/2018 Tablets muscle spasms MS Contin 1 po q12h prn 30tabs Suzanne Jain, 06/30/2017 - 30mg Tablets ER M.D. 06/23/2017 Ondansetron HCL 1 tablet by mouth 30tabs Suzanne Jain, 06/30/2017 - 4mg q8 hours as needed M.D. 06/30/2017 Tablets nausea Ondansetron HCL 1 tablet by mouth 30tabs Suzanne Jain, 06/30/2017 - 4mg q8 hours as needed M.D. 08/06/2017 Tablets nausea please use odt Stool Softener 1 by mouth 2-3 90caps Suzanne Jain, 06/16/2017 - 100mg times daily while M.D. 09/17/2017 Capsules on narcotic pain medication Coumadin take 1-3 tabs by 90tabs Suzanne Jain, 06/16/2017 - 2mg Tablets mouth at 5 at night M.D. 08/06/2017 as directed. do not fill until 06/25/17. Dilaudid 1-2 tabs by mouth 60tabs Suzanne Jain, 01/12/2017 - 2mg Tablets every 6 hours as M.D. 09/17/2017 needed for post-op pain. Percocet 1-2 by mouth every 60tabs Suzanne Jain, 01/09/2017 - 5-325mg Tablets 4-6 hours as needed M.D. 01/12/2017 pain Zofran take 1 by mouth 14tabs Suzanne Jain, 01/09/2017 - 4mg Tablets twice a day as M.D. 02/21/2017 needed for nausea Oxycodone-Acetaminophe 1-2 by mouth every 90tabs M25.562 Suaznne Jain, - n 4-6 hours as needed M.D. 12/11/2016 5-325mg Tablets for pain. Medial Attractions Associate Brace dx - severe varus r 1units M25.561 Suzanne Jain, 03/2017 - - Right Knee knee oa wear with M.D. 06/15/2017 prolonged ambulation Meloxicam 1 by mouth every 60tabs M25.561 Suzanne Jain, 11/28/2016 - 15mg Tablets day M.D. 06/15/2017 Berberine Unknown - Capsules 11/22/2018 Cyclobenzaprine HCL take one tablet by Unknown - 5mg mouth every 8 hours 07/10/2017 Tablets prn. may take a second tablet if first not effetive. Futureplex DPRSN For Sadd / general Unknown - Antitax Homeopathic depression. Approx 11/22/2018 Formula 30gtts 2x daily Bio Align Wellness 0-2 capsules daily Unknown - Formula 11/22/2018 Tylenol 2 tablets every 4 Unknown - 325mg Tablets hours as needed 03/07/2019 pain Iron Unknown - 11/22/2018 Calcium Osteobalance - 4 Unknown - per day 03/07/2019 Zoloft 1 by mouth every Unknown - 25mg Tablets day 02/19/2019 [place] 1 by mouth at Unknown - 10mg Capsules bedtime as needed 02/19/2019 sleep [place] 3 500 Euromega [place]-3 Unknown - 500mg 03/07/2019 Capsules Prolamine Iodine Unknown - 03/07/2019 Probiotic Unknown - 11/22/2018 L-Glutamine Unknown - 6000mg 11/22/2018 Capsules Xyzal Unknown - 11/22/2018 Zyrtec Allergy Unknown - 06/15/2017 Cyclobenzaprine HCL Unknown - 5mg 06/15/2017 Tablets Axert Unknown - 12.5mg Tablets 11/22/2018 Hydrocodone-Acetaminop 1-2 tabs by mouth Unknown - hen every 4- 6 hours as 02/22/2017 5-325mg Tablets needed pain [place]ara Patch Unknown - 11/22/2018 Progesterone twice daily Unknown - Cream 11/22/2018 [place] Thyroid 1 by mouth every Unknown - 30mg day 11/22/2018 Tablets Naltrexone HCL Unknown - 3mg 06/15/2017 Medications Administered in Office Medication SIG Qnty Indications Ordering Provider Date Depomedrol 40MG Suzanne Jain M.D. 02/22/2017 Injection Depomedrol 40MG Suzanne Jain M.D. 12/05/2016 Injection Vital Signs Date Vital Result Comment 03/08/2019 9:13am Height 68 inches 5'8" Weight 220.00 lb Heart Rate 80 /min BP Systolic 120 mmHg BP Diastolic 82 mmHg BMI (Body Mass Index) 33.4 kg/m2 02/22/2019 9:20am Height 68 inches 5'8" Weight [...] Result H/L Range Note Laboratory test 10/15/2018 [facility] Progesterone 1.5 ng/mL [address] [place] [address] [phone] Estradiol 48 pg/mL 2 FSH (Follicle Stim Hormone) 109.9 mIU/mL 3 CBC No Diff 06/16/2017 [facility] White Blood 5.7 10^3/uL N 3.5-10.[address] [place] [address] [phone] Red Blood Count 4.87 10^6/uL N 4.0-5.4 [...] um3 N 7.4-10.4 Comp Metabolic Panel 06/16/2017 [facility] Sodium 136 mmol/L N 133-[address] [place] [address] [phone] Potassium 4.2 mmol/L N 3.5-5.0 Chloride 106 [...] 86.1 N >60 4 Urinalysis Profile 06/16/2017 [facility] Urine Color Yellow N [address] [place] [address] [phone] Urine Appearance Clear N Urine Specific [place] 1.013 N 1.010-1.030 Urine pH 5.0 N 5-9 Urine Urobilinogen Negative N Negative Urine Ketones Negative N Negative Urine Protein Negative N Negative Urine Leukocytes Negative N Negative Urine Blood Negative N Negative Urine Nitrite Negative N Negative Urine Bilirubin Negative N Negative Urine Glucose Negative N Negative Inr/Protime 06/16/2017 [facility] Inr 0.85 Low 0.89-1.[address] [place] [address] [phone] Laboratory test 06/16/2017 [facility] Partial 28.5 seconds N 26.0-36.[address] [place] [address] Time PTT [phone] Type & Screen 06/16/2017 [facility] Patient A Positive [address] [place] [address] [phone] Antibody Screen NEGATIVE N Urine Culture And 06/16/2017 [facility] Urine Culture SEE RESULT [address] [place], [place] [address] [phone] Xray 11/28/2016 [facility] Knee 3 Views <pending> [address] [place], [place] [address] [phone] 1 Female reference ranges for Progesterone: Follicular [...] [address]: Suzanne Jain MD Acct: [id number] Unit: [id number] AGE: 56 Location: [facility] Re06/16/17 SEX: F Status: REG REF SPEC: [id number] BRAYAN: 06/16/17-[address] [facility] [address]: Suzanne Jain MD REQ: [id number] RECD: 06/16/17 STATUS: COMP _ SOURCE: URINE SPDESC: ORDERED: Urine Culture QUERIES: Urine Source: Clean Catch Procedure Result Reported Site Urine Culture Final 06/18/17- 09 ML No Growth (<1,000 CFU/mL) * ML - MAIN LAB (PSC1) . END OF REPORT * ML=Testing performed at Main Lab DEPARTMENT OF PATHOLOGY, [address] [place] [address] Luis Alberto Vela M.D. Director [facility] # [id number] Procedures Date Code Description Status 11/20/2018 [id number] Colonoscopy Completed 06/27/2017 72670 TKR Total Knee Replacement Completed 06/27/2017 36791 TKR Total Knee Replacement Completed 06/16/2017 03802 EKG, Interpretation Only Completed 05/18/2017 [id number] Mammogram Completed 02/22/201729349 Inject/Drain Joint/Bursa Major W/O US Completed 01/12/2017 95812 Arthroscopy,Knee,Meniscectomy Medial Or Lateral Completed 01/12/2017 23731 Arthroscopy,Knee,Meniscectomy Medial Or Lateral Completed 12/05/201662705 Inject/Drain Joint/Bursa Major W/O US Completed Encounters Type Date Location Provider Dx Diagnosis Office Visit 02/22/2019 Orthopedic Suzanne Jain, M25.562 Pain in left knee 9:00a [facility] M.D. M25.462 Effusion, left knee M17.12 Unilateral primary osteoarthritis, left knee Office Visit 11/22/2018 [facility] Nancy, N95.9 Unspecified 8:30a [facility] menopausal and Clinic of perimenopausal Med Surg Rn disorder E03.9 Hypothyroidism, unspecified R53.82 Chronic fatigue, unspecified Z79.890 Hormone replacement therapy G43.009 Migraine w/o aura, not intractable, w/o status migrainosus Office Visit 12/06/2017 3:45p [facility] Suzanne Jain, M25.561 Pain in right [facility] M.D. knee Z47.1 Aftercare following joint replacement surgery Z96.651 Presence of right artificial knee joint S83.421A Sprain of lateral collateral ligament of right knee, init Office Visit 06/27/2017 [facility] Z98.890 Other specified 11:10a Assoc,pc EDSON Kwong postprocedural Hospitalists states E03.9 Hypothyroidism, unspecified G43.909 Migraine, unsp, not intractable, without status migrainosus Office Visit 05/24/2017 2:00p [facility] Szuanne Jain, M25.561 Pain in right Of [facility] [...] osteoarthritis, right knee Plan of Treatment Future Appointment(s):04/01/2019 9:45 am - Suzanne Jain M.D. at [facility]03/19/2019 7:30 am - MARIAA Zhu at [facility]03/11/2019 10:30 am - Nithin Jackson DO FACC at [facility]03/19/2019 7:30 am - EDSON Nathan at [facility]03/19/2019 7:30 am - Suzanne Jain M.D. at [facility]05/21/2019 10:00 am - EDSON aCmpos at [facility]
[2019-03-19] MEDS ORDERED: celeCOXIB CAP* 200 MG ONE (07:32)
[2019-03-19] MEDS ORDERED: Gabapentin CAP(*) 300 MG ONE (07:32)
[2019-03-19] MEDS ORDERED: ceFAZolin 2 GM PREMIX in ORs 2 GM/50 ML BAG IVPB ONE (07:32)
[2019-03-19] MEDS ORDERED: Dexamethasone IV* 4 MG/ML 1 ML (4 MG) ONE (07:32)
[2019-03-19] MEDS ORDERED: Buffered Lidocaine 1% SYRIN* 1 ML/SYRINGE INTRADERM ONE (07:33)
[2019-03-19] MEDS ORDERED: Famotidine IV* 10 MG/ML 2 ML (20 mg) ONE (07:33)
[2019-03-19] MEDS: Buffered Lidocaine 1% SYRIN* 1 ML/SYRINGE INTRADERM ONE ×2 (08:00→17:57)
[2019-03-19] MEDS ORDERED: Phenylephrine 10 MG/ML VIAL* 1 ML VIAL ONE (08:10)
[2019-03-19] MEDS ORDERED: Bupivacaine 0.5% SDV PF* 30ML VIAL ONE (08:13)
[2019-03-19] MEDS ORDERED: Propofol* 10 MG/ML 20 ML BTL ONE ×2 (08:13→11:10)
[2019-03-19] MEDS ORDERED: ROPIVACAINE 5 MG/ML 30 ML BTL (0.5%) ONE ×2 (08:15→10:23)
[2019-03-19] MEDS ORDERED: KETAMINE HCL* 50 MG/ML 10 ML VIAL ONE (08:17)
[2019-03-19] MEDS ORDERED: Ondansetron INJ* 2 MG/ML VIAL ONE (08:17)
[2019-03-19] MEDS ORDERED: fentaNYL* 50 MCG/ML 2 ML VIAL (100 MCG VIAL) ONE (08:17)
[2019-03-19] MEDS ORDERED: Midazolam* 1 MG/ML 5 ML VIAL (5 MG) ONE ×2 (08:17→09:36)
[2019-03-19] MEDS ORDERED: Acetaminophen IV 1GM/100ML * 100 ML ONE (10:05)
[2019-03-19] MEDS ORDERED: Ondansetron INJ* 2 MG/ML VIAL IV PRN ×2 (10:13→12:45)
[2019-03-19] MEDS ORDERED: fentaNYL* 50 MCG/ML 2 ML VIAL (100 MCG VIAL) IV PRN (10:13)
[2019-03-19] MEDS ORDERED: DiMENhydriNATE IV* 50 MG/ML VIAL IV PUSH PRN (10:13)
[2019-03-19] MEDS ORDERED: HYDROmorphone INJ1* 1 MG/ML SYRINGE IV PRN (10:13)
[2019-03-19] MEDS ORDERED: Naloxone* 0.4 MG/ML 1 ML VIAL IV PRN (10:13)
[2019-03-19] MEDS ORDERED: Polyethylene Glycol 3350* 17 GM PACKET PO PRN (12:45)
[2019-03-19] MEDS ORDERED: Bisacodyl SUPP* 10 MG SUPP PR PRN (12:45)
[2019-03-19] MEDS ORDERED: oxyCODONE/Acetamin 5/325 MG* TAB PO PRN ×2 (12:45)
[2019-03-19] MEDS ORDERED: Morphine INJ* 2 MG/ML 1 ML SYRINGE (TWO MG - NEW SYRINGE VERSION) IV PRN (12:45)
[2019-03-19] MEDS ORDERED: Magnesium Hydroxide LIQ* 30 ML UDC PO PRN (12:45)
[2019-03-19] MEDS ORDERED: oxyCODONE TAB* 5 MG TAB PO PRN (12:45)
[2019-03-19] MEDS ORDERED: Ondansetron TAB* 4 MG PO PRN (12:45)
[2019-03-19] MEDS ORDERED: diPHENhydraMINE IV* 50 MG/ML 1 ml VIAL (BENADRYL) IV PRN (12:45)
--- NOTE | 2019-03-19 14:57 | PN ---
Progress Note - Progress Note Date of Service: 03/19/19 Note: Patient seen at bedside in PACU. She is alert and oriented, comfortable. Block still working well, just starting to wiggle ankle but cannot yet dorsiflex , sensation still diminished at dorsal ankle and foot. 2+ pedal pulse.
[2019-03-19] MEDS ORDERED: traMADol TAB* 50 MG ONE (16:16)
[2019-03-19] MEDS: traMADol TAB* 50 MG PO PRN ×2 (16:19→21:50)
[2019-03-19] MEDS: Lactated Ringers 1000 ML Bag* 1,000 ML IV SCH (16:19)
--- NOTE | 2019-03-19 17:13 | OP ---
Operative Report - Blank - Operative Report Date of Operation: 03/19/19 Note: ALEJANDRA DUMAS 1960 Date of Surgery: 03/19/19 Suzanne Jain MD Switcher: Lisette SANDHU did help throughout the procedure with preparation of the knee, wound retraction, manipulation of the knee, and wound closure. Anesthesiologist: Constance Li MD Anesthesia Type: Spinal Preoperative Diagnosis: Left severe degenerative osteoarthritis of the knee Postoperative Diagnosis: As above Procedure Performed: Left Total Knee Arthroplasty Tourniquet time: 80 minutes Complications: None Specimen: Bone and cartilage from the left knee joint sent to pathology. Hardware Used: Cemented Bhatia and Nephew total knee hardware was used - For the femur a size 6 left oxinium legion posterior stabilized femoral component, for the tibia a size 5 left santana II tibial baseplate, for the insert a size 11 5- 6 posterior stabilized articular polyethylene insert, and for the patella a size 32 3-peg all poly patella. Navio robotic assisted surgery was used for this case. 4 mm pins were used in the femur and tibia and removed at the end of the case. Brief History/Indication: ALEJANDRA DUMAS was known in clinic and had a history of severe left knee pain and swelling. She failed conservative treatment with anti-inflammatories, pain pills, intra-articular injections and physical therapy. She elected to undergo left total knee arthroplasty due to continued pain and decreased quality of life. Radiographs showed severe end stage osteoarthritis of the knee with bone on bone contact. Informed consent was obtained from the patient. She understood the risks of surgery included but were not limited to: bleeding, infection, damage to nearby structures, intraoperative fracture, nerve palsy, failure of the hardware, early loosening, knee stiffness or loss of motion, anesthesia complications, stroke, heart attack , blood clot and . She wished to proceed. Intra-Operative Findings: Intraoperatively the patient was noted to have severe loss of cartilage in all 3 compartments of the knee. Description of the Procedure: ALEJANDRA DUMAS was identified in the preanesthesia unit. Her left knee was marked as the correct operative side. Informed consent was signed and placed in the chart. The patient was taken to the operating room and placed under anesthesia without complication. A jiménez catheter was placed. A tourniquet was placed on the left thigh. The left lower extremity was prepped and draped in the usual sterile fashion. Preoperative time-out was made to correctly identify the patient, side and site. Appropriate intraoperative antibiotics were given within one hour of incision. Tourniquet was inflated. A midline incision was made and carried sharply down to the extensor mechanism. A new 10 blade was used to make a standard medial parapatellar arthrotomy. The patella was subluxed laterally. Electrocautery was used to dissect soft tissue off the superomedial tibia to the midsagittal plane. The knee was flexed up. The anterior horn of the lateral meniscus and the ACL/PCL were sharply incised. Two pins were placed in the femur and two pins were placed in the tibia. The navio arrays were locked into place on the pins and the PLUQ robotic assisted camera was used to start marking anatomic points. The knee was taken through a range of motion to establish center of rotations. The PLUQ robotic system them mapped the anatomy using the checkpoints and sized the femur to a size 6. The robotic controlled antony was used to remove the distal femoral bone and the rotation pin sites for the cutting jig were made. The size 6 multi-cutting jig was pinned on the distal femur. The oscillating saw was used to make the appropriate 4 chamfer cuts. Next the PCL was completely released. The navio system was used to antony two tibial cutting guide holes and the tibial cutting guide was pinned on the proximal tibia. The oscillating saw was used to make the proximal tibial cut perpendicular to the mechanical axis of the tibia. The bone was carefully removed. The knee was brought out into full extension. The spacer block was placed and had excellent fit with the knee in full extension. The medial and lateral ligaments were well balanced. The flexion and extension gaps were well balanced. The knee was flexed up. Lamina technology integration specialist was placed both medially and laterally. Any remaining meniscus was removed with electrocautery. Curved osteotome was used to remove any posterior osteophytes. The tibial tray and drop gordy were placed and confirmed a satisfactory tibial cut. The size 6 left femoral trial was impacted onto the distal femur. This trial had excellent fit and stability. The box for the posterior stabilized implant was prepared using a box cut osteotome and a reamer. Next a tibial tray trial and 9 mm insert trial was placed. The knee was taken through a range of motion and had full extension to 130 degrees of flexion. Patellofemoral tracking was satisfactory. The patella was inverted and sized to a size 32. Three peg holes were drilled through the size 32 drill guide. The trial patella was placed and the knee was taken through a range of motion. There was satisfactory patellofemoral tracking. All trials were removed. The tibia was subluxed anteriorly and sized to a size 5. The proximal tibial was prepared with a size 5 keel punch. All bony cut surfaces were irrigated with sterile saline and dried. Final implants were cemented into place starting with the tibia, followed by the femur, and last the patella. A 11 mm insert trial was placed and the knee was brought into full extension. Tourniquet was turned down and the knee was copiously irrigated with sterile saline. Electrocautery was used to obtain meticulous hemostasis. Once the cement had fully cured, the insert trial was removed. Any excess cement was removed from around the hardware and capsule. Final insert chosen was a 11 mm posterior stabilized Santana II articular insert size 5-6. Stability of the insert was checked and noted to be stable. 4 pins and checkpoint screws were carefully removed. The extensor mechanism was closed using number 1 vicryls. The rest of the incision was closed in a layered fashion using 0 and 2-0 vicryls. The skin was closed using 3-0 nylon suture. Sterile xeroform, 4x4s and webril were used to cover the incision. Norman wrap and cold pack were used to cover the dressings. The patients anesthesia was reversed without difficulty. She was taken to the PACU in stable condition. Intended weight-bearing will be as tolerated.
[2019-03-19] MEDS: Acetaminophen TAB* 325 MG PO SCH (17:58)
[2019-03-19] MEDS: HYDROmorphone TAB* 2 MG PO PRN ×2 (17:59→23:14)
[2019-03-19] MEDS: ceFAZolin 1 GM ADVAN(*) 1 GM in NS 0.9% 50 ML* 50 ML IVPB SCH (18:04)
[2019-03-19] MEDS: Docusate CAP* 100 MG PO SCH (20:57)
[2019-03-19] MEDS: Cyclobenzaprine TAB* 10 MG PO PRN (20:57)
[2019-03-19] MEDS: Magnesium Hydroxide LIQ* 30 ML UDC PO SCH (20:58)
[2019-03-19] MEDS ORDERED: PROGESTERONE 100 MG PO SCH (21:00)
[2019-03-19] MEDS ORDERED: ESTRADIOL TRANSDERM SCH (21:30)
[2019-03-19] MEDS ORDERED: [UNRECOGNIZED DRUG - OTHER] TRANSDERM SCH (21:30)
[2019-03-20] MEDS: ceFAZolin 1 GM ADVAN(*) 1 GM in NS 0.9% 50 ML* 50 ML IVPB SCH ×2 (02:06→10:23)
[2019-03-20] MEDS: Lactated Ringers 1000 ML Bag* 1,000 ML IV SCH (02:06)
[2019-03-20] MEDS: Acetaminophen TAB* 325 MG PO SCH ×2 (03:05→10:22)
[2019-03-20] MEDS: HYDROmorphone TAB* 2 MG PO PRN ×3 (03:06→12:14)
[2019-03-20] MEDS: Cyclobenzaprine TAB* 10 MG PO PRN ×2 (03:07→11:19)
[2019-03-20 06:00] LABS: Hematocrit 36 % (35-47); Hemoglobin 12.1 g/dL (12.0-16.0); Mean Platelet Volume 9.6 fL (7.4-10.4); Platelet Count 174 10^3/uL (150-450)
[2019-03-20] MEDS: traMADol TAB* 50 MG PO PRN ×2 (06:00→15:13)
[2019-03-20 06:13] LABS: BUN/Creatinine Ratio 11.4 (8-20); Calcium 8.7 mg/dL (8.6-10.3); EGFR African American 91.1 (>60); EGFR Non-African American 75.3 (>60); Potassium 4.3 mmol/L (3.5-5.0)
[2019-03-20] MEDS: Docusate CAP* 100 MG PO SCH (08:16)
[2019-03-20] MEDS: Magnesium Hydroxide LIQ* 30 ML UDC PO SCH (08:16)
[2019-03-20] MEDS ORDERED: Naltrexone TAB* 50 MG TAB PO SCH (09:00)
[2019-03-20] MEDS ORDERED: Apixaban* 2.5 MG TAB PO SCH (09:00)
[2019-03-20] MEDS ORDERED: Thyroid TAB* 60 MG PO SCH (09:00)
[2019-03-20] MEDS ORDERED: PTO:LevoCETirizine TAB (NF) 5 MG TAB PO SCH (09:00)
--- NOTE | 2019-03-20 10:26 | PN ---
Progress Note - Progress Note Date of Service: 03/20/19 SOAP: Subjective: []Lina was seen and examined at bedside today. Pain is well controlled, she denies nausea, dizziness, chest pain or shortness of breath. Desires DC home today if PT goals met Objective: []General: Appears well, NAD LLE: left knee dressing CDI, thigh is soft, DF/PF intact, DP2+, sensation intact to light touch distally Calves supple and nontender without erythema, edema or palpable cords Assessment: []POD 1 sp left total knee replacement Plan: []WBAT PT/OT eliquis 2.5 mg po BID x 30 days post op Anticipate DC home today as long as PT goals met Will change dressing prior to DC Vital Signs Temp 99 F 03/20/19 08:08 Pulse 69 03/20/19 08:08 Resp 18 03/20/19 08:16 BP 117/64 03/20/19 08:08 Pulse Ox 97 03/20/19 08:08 Intake & Output 03/19/19 03/20/19 03/20/19 18:59 06:59 18:59 Intake Total 2140 1948 240 Output Total 2450 1850 Balance -310 98 240 Weight 221 lb 3.2 oz Intake: IV Fluids 1600 998 ABX - CEFAZOLIN 54 LR 1600 944 Oral 540 950 240 Output: Hunter 2450 1850 Other: # Bowel Movements 0 Laboratory Last Values Hgb 12.1 g/dL (12.0-16.0) 03/20/19 05:26 Hct 36 % (35-47) 03/20/19 05:26 Plt Count 174 10^3/uL (150-450) 03/20/19 05:26 MPV 9.6 fL (7.4-10.4) 03/20/19 05:26 Sodium 137 mmol/L (135-145) 03/20/19 05:26 Potassium 4.3 mmol/L (3.5-5.0) 03/20/19 05:26 Chloride 106 mmol/L (101-111) 03/20/19 05:26 Carbon Dioxide 29 mmol/L (22-32) 03/20/19 05:26 Anion Gap 2 mmol/L (2-11) 03/20/19 05:26 BUN 9 mg/dL (6-24) 03/20/19 05:26 Creatinine 0.79 mg/dL (0.51-0.95) 03/20/19 05:26 Est GFR ( Amer) 91.1 (>60) 03/20/19 05:26 Est GFR (Non-Af Amer) 75.3 (>60) 03/20/19 05:26 BUN/Creatinine Ratio 11.4 (8-20) 03/20/19 05:26 Glucose 125 mg/dL (70-100) H 03/20/19 05:26 Calcium 8.7 mg/dL (8.6-10.3) 03/20/19 05:26
--- NOTE | 2019-03-20 10:40 | DS ---
Orthopedic Discharge Summary - Discharge Summary Date of Admission:03/19/19 Date of Discharge: 03/20/19 Date of Surgery: 03/19/19 Attending Orthopedic Provider: Dr Jain Pre-operative Diagnosis: Left knee osteoarthritis Operative Procedure: left total knee replacement Disposition of Patient: home Condition of Patient: stable History: ALEJANDRA DUMAS is a 58 year old F with years of increasingly severe left knee pain. Patient has failed conservative management and has elected to undergo a left total knee replacement Hospital Course: ALEJANDRA was admitted to [facility] on 03/19/19. Patient underwent a left total knee replacement without complication followed by a brief recovery in PACU and transfer to the Short Stay Surgical Unit in stable condition. Our physical therapy and occupational therapy also participated in this patients care. Post-op day 1: patient was alert and in no acute distress. Dressing was clean, dry and intact. Dressing changed prior to discharge, incision CDI without discharge or surrounding erythema. Operative extremity dorsiflexion and plantarflexion intact, sensation intact to light touch distally, DP2+. Patient was deemed to be stable for discharge. Physical therapy goals were met. Home Medications Medication Instructions Recorded Confirmed Type Naltrexone TAB* 3 mg PO QAM 11/20/18 03/19/19 History Progesterone, Micronized 100 mg PO QPM 11/20/18 03/19/19 History Progesterone Rizatriptan (NF) [Maxalt(NF)] 10 mg PO ONCE PRN 11/20/18 03/19/19 History Andrographis Plus-Metagenics 2 - 8 tab PO ONCE PRN 03/08/19 03/19/19 History Atp Fuel-Researched Nutritiona 5 tab PO QAM 03/08/19 03/19/19 History Boswellia Complex 2 tab PO BID 03/08/19 03/19/19 History Budesonide NASAL (NF) [Rhinocort 2 spray BOTH NARES QAM 03/08/19 03/19/19 History Aqua (NF)] E-Poise-Std Proces 1 tab PO QAM 03/08/19 03/19/19 History Estradiol PATCH 0.0375/DAY* 1 patch TRANSDERM VAZQUEZ 03/08/19 03/19/19 History LevoCETirizine TAB (NF) [Xyzal TAB 5 mg PO QAM 03/08/19 03/19/19 History (NF)] Licorice Plus 2 tab PO QAM 03/08/19 03/19/19 History Osteobalance-Pure 4 tab PO ONCE 03/08/19 03/19/19 History Jjvzbn-G-Uqmvust-Ujan Luis 1 tab PO BID 03/08/19 03/19/19 History Super Epa Juan Luis 1 cap PO BID 03/08/19 03/19/19 History Thyroid,Pork [Silviculture Forester Thyroid] 60 mg PO QAM 03/08/19 03/19/19 History Vitamin C 2 tab PO QAM 03/08/19 03/19/19 History Vitamin D Mist 6 spray PO QAM 03/08/19 03/19/19 History Vitamin K2 1 cap PO QAM 03/08/19 03/19/19 History Acetaminophen TAB* [Tylenol TAB*] 975 mg PO Q8H tab MDD 4000 MG 03/20/19 Rx Apixaban* [Eliquis*] 2.5 mg PO BID 30 Days #60 tab 03/20/19 Rx Cyclobenzaprine TAB* [Flexeril 10 5 mg PO TID PRN #10 tab 03/20/19 Rx MG TAB*] Docusate CAP* [Colace Cap*] 100 mg PO BID PRN #90 cap 03/20/19 Rx hydromorphone 2 mg 1 tab every 4 hours as needed for severe pain 03/20/19 Rx Discharge Instructions following Orthopedic Surgery: Activity: * Weight Bearing as tolerated * Continue physical therapy and occupational therapy exercises as shown * home physical therapy Wound care: * OK to shower on post-op day 3, no bathing, swimming, or submerging wound. * Use gentle soap, pat dry. Cover with gauze, YAHAIRA wrap or tape. * Visiting home nurse to do wound checks. Call Orthopedic office for: * Increased drainage * Redness * Increased pain * Fever Go to ER with shortness of breath or chest pain. Diet: * Regular diet * Increase fluids and fiber to prevent constipation. * Continue to use stool softeners, call office if no bowel motion within 48 hours. Medications See Home Medication List in your packet for medications that you should take after discharge. DVT Prophylaxis: Eliquis Dosin.5 mg, 1 tab every 12 hours x 30 days. Please be aware that this medication increases bleeding tendency Pain Control: Hydromorphone 2 mg tabs. one tab every 4 hours as needed for severe breakthrough pain.Wean off as soon as able, Hold hydromorphone for sedation. Antibiotics are required prior to any dental work. FOLLOW UP: Follow up with [Cristobal] Within 10-14 days, call for appointment Please call our office with any questions or concerns ([phone]) RX to [address] [facility]
[2019-03-20 11:43] VITALS: BP 114/58
== END 2019-03-20 16:00 | disposition home or self-care (01) | DRG 302 ==
LOC: AA 06:57 → SSU 15:54
PROVIDERS: ADMIT Orthopaedic Surgery Adult Reconstructive Orthopaedic Surgery; ATTEND Orthopaedic Surgery Adult Reconstructive Orthopaedic Surgery
PROC: 0SRD069 Replacement of Left Knee Joint with Oxidized Zirconium on Polyethylene Synthetic Substitute, Cemented, Open Approach (ICD-10-PCS; principal; 2019-03-19 09:00)
DX: M17.12 Unilateral primary osteoarthritis, left knee (principal); G43.909 Migraine, unspecified, not intractable, without status migrainosus; E03.9 Hypothyroidism, unspecified; Z96.651 Presence of right artificial knee joint; G25.81 Restless legs syndrome; G89.29 Other chronic pain; R53.82 Chronic fatigue, unspecified; N95.1 Menopausal and female climacteric states; N80.0 Endometriosis of uterus; E66.3 Overweight; M25.762 Osteophyte, left knee; Z80.3 Family history of malignant neoplasm of breast; Z82.3 Family history of stroke; Z82.49 Family history of ischemic heart disease and other diseases of the circulatory system; Z72.89 Other problems related to lifestyle; Z82.61 Family history of arthritis; Z83.49 Family history of other endocrine, nutritional and metabolic diseases; Z79.890 Hormone replacement therapy; Z68.33 Body mass index [BMI] 33.0-33.9, adult
CPT/HCPCS: 36415; 80048; 85014; 85018; 85049; A9270-GY; C1776; J0690; J1100; J2250; J2270; J2405; J2704; J2795; J3010; J3490

== ENCOUNTER 2020-01-23 16:26 | Emergency (ER) | payer BC, OTHER ==
--- NOTE | 2020-01-23 17:51 | ED ---
Influenza-Like Illness - HPI Summary HPI Summary: 59 y/o F p/w cough and fatigue. Saw her ED[facility] GR[facility]ER one week ago, was told she may have bronchitis. Was put on inhaler, medrol dose pack and took doxycycline. [place] fatigued on Monday, started taking doxy Monday. [place] tired walking. Patient had knee replacement one year ago, went to go for a walk today and felt SOB w GALINDO. Also felt palpitations which she attributed to albuterol. [place] fatigued. No fevers recently (tmax 99). No hx DVT/PE or heart problems. Had stress test one year ago, normal. hx lyme disease, knee replacement. Fhx: neg for cardiac problems, blood clots. - History of Current Complaint Chief Complaint: EDUpperRespComplaint Time Seen by Provider: 01/23/20 16:54 Hx Obtained From: Patient Onset/Duration: Lasting Days, Still Present - Allergy/Home Medications Allergies/Adverse Reactions: Allergies Allergy/AdvReac Type Severity Reaction Status Date / Time oxycodone Allergy headache, Verified 03/19/19 07:40 GI upset SEASONAL Allergy Congestion Uncoded 03/19/19 07:40 Home Medications: Home Medications Naltrexone TAB* 3 mg PO QAM 11/20/18 [History Confirmed 03/19/19] Progesterone, Micronized [Progesterone] 100 mg PO QPM 11/20/18 [History Confirmed 03/19/19] Rizatriptan (NF) [Maxalt(NF)] 10 mg PO ONCE PRN 11/20/18 [History Confirmed ] Andrographis Plus-Metagenics 2 - 8 tab PO ONCE PRN 03/08/19 [History Confirmed 03/19/19] Atp Fuel-Researched Nutritiona 5 tab PO QAM 03/08/19 [History Confirmed 03/19/19 ] Boswellia Complex 2 tab PO BID 03/08/19 [History Confirmed 03/19/19] Budesonide NASAL (NF) [Rhinocort Aqua (NF)] 2 spray BOTH NARES QAM 03/08/19 [ History Confirmed 03/19/19] E-Poise-Std Proces 1 tab PO QAM 03/08/19 [History Confirmed 03/19/19] Estradiol PATCH 0.0375/DAY* 1 patch TRANSDERM VAZQUEZ 03/08/19 [History Confirmed ] LevoCETirizine TAB (NF) [Xyzal TAB (NF)] 5 mg PO QAM 03/08/19 [History Confirmed 03/19/19] Licorice Plus 2 tab PO QAM 03/08/19 [History Confirmed 03/19/19] Osteobalance-Pure 4 tab PO ONCE 03/08/19 [History Confirmed 03/19/19] Crmrce-H-Zyqpbgf-Juan Luis 1 tab PO BID 03/08/19 [History Confirmed 03/19/19] Super Epa Juan Luis 1 cap PO BID 03/08/19 [History Confirmed 03/19/19] Thyroid,Pork [Senior Data Quality Analyst Thyroid] 60 mg PO QAM 03/08/19 [History Confirmed 03/19/19] Vitamin C 2 tab PO QAM 03/08/19 [History Confirmed 03/19/19] Vitamin D Mist 6 spray PO QAM 03/08/19 [History Confirmed 03/19/19] Vitamin K2 1 cap PO QAM 03/08/19 [History Confirmed 03/19/19] Acetaminophen TAB* [Tylenol TAB*] 975 mg PO Q8H tab MDD 4000 MG 03/20/19 [Rx] Apixaban* [Eliquis*] 2.5 mg PO BID 30 Days #60 tab 03/20/19 [Rx] Docusate CAP* [Colace Cap*] 100 mg PO BID PRN #90 cap 03/20/19 [Rx] HYDROmorphone TAB* [Dilaudid TAB*] 2 mg PO Q4H PRN #42 tab MDD 6 03/20/19 [Rx] PMH/Surg Hx/FS Hx/Imm Hx Endocrine/Hematology History: Reports: Hx Thyroid Disease Denies: Hx Diabetes Cardiovascular History: Denies: Hx Angina - SOB, Hx Deep Vein Thrombosis, Hx Hypertension Respiratory History: Reports: Hx Asthma - POSSIBLE ASTHMA Denies: Hx Pulmonary Embolism GI History: Reports: Other GI Disorders - Lyme disease History: Reports: Other Problems/Disorders - incontinence, since last c- section 1998 Musculoskeletal History: Reports: Hx Arthritis - both knees Sensory History: Reports: Hx Contacts or Glasses - glasses Opthamlomology History: Reports: Hx Contacts or Glasses - glasses Neurological History: Reports: Hx Headaches - migraines- some severe, Hx Migraine - OCCASSIONALLY, Other Neuro Impairments/Disorders - Lyme disease, confirmed in 2005 Psychiatric History: Reports: Hx Depression - DURING WINTER- Seasonal affective disorder - SAD - Surgical History Surgery Procedure, Year, and Place: csection, fx right tibia. SINUS SURGERY 2001. knee replacement Hx Anesthesia Reactions: Yes - after - nausea Infectious Disease History: No Infectious Disease History: Denies: Traveled Outside the [place] in Last 30 Days - Family History Known Family History: Negative: Cardiac Disease, Blood Disorder - Social History Alcohol Use: Weekly Alcohol Amount: 2-4 GLASSES OF WINE WEEKLY Hx Substance Use: No Substance Use Type: Reports: None Hx Tobacco Use: No Smoking Status (MU): Never Smoked Tobacco Have You Smoked in the Last Year: No Review of Systems Positive: Fatigue. Negative: Fever Positive: Cough All Other Systems Reviewed And Are Negative: Yes Physical Exam - Summary Physical Exam Summary: Constitutional: Well-developed, Well-nourished, Alert. (-) Distressed Skin: Warm, Dry HENT: Normocephalic; Atraumatic Eyes: Conjunctiva normal Neck: Musculoskeletal ROM normal neck. (-) JVD, (-) Stridor, (-) Nuchal rigidity Cardio: Rhythm regular, rate normal, Heart sounds normal; Intact distal pulses; Radial pulses are 2+ and symmetric. (-) Murmur Pulmonary/Chest wall: Effort normal. (-) Respiratory distress, (-) Wheezes, (-) Rales Abd: Soft, (-) tenderness, (-) Distension, (-) Guarding, (-) Rebound Musculoskeletal: (-) Edema Lymph: (-) Cervical adenopathy Neuro: Alert, Oriented x3 Psych: Mood and affect Normal Triage Information Reviewed: Yes Vital Signs On Initial Exam: Initial Vitals Temp Pulse Resp BP Pulse Ox 36.1 C 78 16 130/82 99 01/23/20 16:31 01/23/20 16:31 01/23/20 16:31 01/23/20 16:31 01/23/20 16:31 Vital Signs Reviewed: Yes Procedures - Sedation Patient Received Moderate/Deep Sedation with Procedure: No Diagnostics - Vital Signs Vital Signs Temp Pulse Resp BP Pulse Ox 01/23/20 16:31 36.1 C 78 16 130/82 99 - Laboratory Result Diagrams: 01/23/20 18:34 01/23/20 18:34 Lab Statement: Any lab studies that have been ordered have been reviewed, and results considered in the medical decision making process. - Radiology CXR Radiology Interpretation Completed By: Radiologist - IMPRESSION: NO ACTIVE CARDIOPULMONARY DISEASE IS NOTED. ED physician has reviewed this imaging report. - EKG 1844 Cardiac Rate: NL - 77 BPM EKG Rhythm: Sinus Rhythm Summary of EKG Findings: T wave flattening in 3. ED physician has reviewed and interpreted this EKG. Flu Symptom Course/Dx - Course Course Of Treatment: 59-year-old female presenting with shortness of breath and URI-like symptoms. Shortness of breath ddx: Most likely 2/2 URI, covid pending. Also consider: COPD exacerbation/asthma - no h/o COPD, no wheezing on exam. Low suspicion. PNA - no sputum production, no fevers or chills. No leukocytosis. CXR w/o infiltrate. Low suspicion. PTX - breath sounds equal, no risk factors for PTX, CXR w/o e/o PTX. ACS - no CP, no EKG changes, initial trop not elevated. Low suspicion. CHF - no h/o CHF, no GALINDO or orthopnea, no BLE edema, CXR w/o pulmonary edema. PE - no risk factors for PE, no unilateral leg swelling, Wells low risk, d dimer <200. ACS - troponin neg, EKG w flat t waves III otherwise OK, Heart score 2, low risk - Diagnoses Provider Diagnoses: Shortness of breath Discharge ED - Sign-Out/Discharge Documenting (check all that apply): Patient Departure - Discharge Plan Condition: Stable Disposition: HOME Patient Education Materials: Upper Respiratory Infection (ED) Forms: COVID-19 Tested & Isolation Referrals: Jessica Mckeon MD [Primary Care Provider] - Additional Instructions: You were seen in the emergency department for coronavirus rule out and shortness of breath. You are in quarantine, this means you should stay in your house. You should wear a mask you're outside of your personal room. We encourage handwashing as well as limited contact with other people including the elderly and the immunocompromised. Your test should result in several days. If any studies were not completed at the time of discharge you will be called with the relevant results. Please follow up with your primary care doctor in next 2-3 days and return to emergency department for trouble breathing, worsening or concerning symptoms. It was a pleasure taking care of you today. - Billing Disposition and Condition Condition: STABLE Disposition: Home - Attestation Statements Document Initiated by Laurie: Yes Documenting Scribe: Odilia Guthrie Provider For Whom Laurie is Documenting (Include Credential): Susana Bernabe MD Scribe Attestation: I, Odilia Guthrie, scribed for Susana Bernabe MD on 01/23/20 at 1939. Scribe Documentation Reviewed: Yes Provider Attestation: The documentation as recorded by the owenibe, Odilia Guthrie accurately reflects the service I personally performed and the decisions made by me, Susana Bernabe MD Status of Scribe Document: Viewed
--- OUTSIDE RECORDS SUMMARY | 2020-01-23 18:40 | XMS REPORT | Continuity of Care Document ---
:1960 External Reference #:[id number] Author Name Kristy Lisa, JOSE MARIA Address [address] [place] [address] Care Team Providers Name Role Phone Stevie Rios MD - Oral and Care Team Information Counter Hand [phone] Maxillofacial Surgery [facility] - Care Team Information Counter Hand [phone] Gastroenterology Hudson Sesay MD - Surgery Care Team Information Counter Hand [phone] Jessica Mckeon M.D. - Family Medicine Care Team Information Counter Hand [phone] [facility] - Care Team Information Counter Hand Physical Therapist Problems Active Problems Provider Date Lyme disease Zackary Toledo M.D. Onset: 06/06/2006 Chronic fatigue syndrome Zackary Toledo M.D. Onset: 06/06/2006 Malaise and fatigue Zackary Toledo M.D. Onset: 06/06/2006 Chronic pain Zackary Toledo M.D. Onset: 01/29/2008 Restless legs Zackary Toledo M.D. Onset: 01/29/2008 Headache Zackary Toledo M.D. Onset: 01/29/2008 Arthropathy Marcus Meyer M.D. Onset: 04/11/2012 Overweight Marcus Meyer M.D. Onset: 04/11/2012 Disorder of skin and/or subcutaneous tissue Marcus Meyer M.D. Onset: 01/2012 Acute upper respiratory infection Marcus Meyer M.D. Onset: 11/20/2012 Simple chronic bronchitis Marcus Meyer M.D. Onset: 11/29/2012 Telogen effluvium Marcus Meyer M.D. Onset: 11/29/2012 Acute non-suppurative otitis media - serous Marcus Meyer M.D. Onset: Cyst of ovary Marcus Meyer M.D. Onset: 02/13/2013 Adjustment Reaction Other Specified Marcus Meyer M.D. Onset: 07/11/2013 Mild recurrent major depression Marcus Meyer M.D. Onset: 02/28/2014 Status migrainosus Larry Merchant M.D. Onset: 08/06/2016 Hypothyroidism Jessica Mckeon M.D. Onset: 03/13/2019 Female climacteric state Jessica Mckeon M.D. Onset: 03/13/2019 Endometriosis of uterus Jessica Mckeon M.D. Onset: 03/13/2019 Social History Type Date Description Comments Sex Unknown Tobacco Use Start: Unknown Never Smoked Cigarettes ETOH Use Occasional Tobacco Use Start: Unknown Nonsmoker Recreational Drug Use Never Used Drugs Smoking Status Reviewed: 03/13/19 Nonsmoker Allergies, Adverse Reactions, Alerts Active Allergies Reaction Severity Comments Date NKDA 06/12/2011 Seasonal 04/11/2013 Medications Active Medications SIG Qnty Indications Ordering Date Provider Medrol dose-pack as 1pack Kristy 01/17/2020 4mg Tablets instructed Maria L, [employer] Doxycycline Hyclate 1 by mouth twice 20tabs Kristy 01/17/2020 100mg a day for 10 days Maria L, [employer] Tablets Nebulizer use as directed 1units R06.02 Kristy 01/17/2020 Kit/Tubing/Mouthpiece with nebulizer Maria L, [employer] Kit Albuterol Sulfate admin 1 75ml Kristy 01/16/2020 ampule/vial Maria L, [employer] (2.5mg/3ML) 0.083% inhaled via Nebulizer nebulizer machine every 6 hours as needed cough, shortness of breath Ipratropium [place] 1 bullet per 62.500ml R05 Krisyt 01/15/2020 0.02% nebulizer every 4 Maria L, [employer] Solution hours as needed coughing, shortness of breath Cyclobenzaprine HCL Take One To Two 60tabs Kristy 10/08/2019 5mg Tablets By Mouth JOSE MARIA Lisa Tablets Every Night AT Bedtime as Needed Maxalt-PUMP REBUILDER 1 by mouth at 9tabs Kristy 12/04/2018 10mg Tablets onset of Maria L, [employer] Dispers migraine; max daily dose 1 tablet not to exceed 9 pills per month Progesterone 1 by mouth Unknown Micronized 100mg Capsules Holcomb Thyroid 1 by mouth every Unknown 60mg day for thyroid Tablets Estradiol apply 1 patch a Unknown 0.05mg/24HR week Patches Biweek Naltrexone Low dose - 3mg Unknown daily History Medications Albuterol Sulfate 1 bullet via 30units Kristy Lisa, 01/15/2020 - nebulizer every [facility] 01/16/2020 2.5mg/0.5ML 4-6 hours as Nebulizer needed shortness of breath, cough Medications Administered in Office Medication SIG Qnty Indications Ordering Provider Date Brief Emotional/Behav JOSE MARIA Alvarado 04/24/2018 Assessment W/ Scoring Doc Per Standard Inst Injection B-12 Injection Zackary Toledo M.D. 08/09/2006 Injection B-12 Injection Zackary Toledo M.D. 05/24/2006 Injection Injection Subcutaneous Or Zackary Toledo M.D. 05/24/2006 Intramuscular Injection B-12 Injection Zackary Toledo M.D. 04/14/2006 Injection Injection Subcutaneous Or Zackary Toledo M.D. 04/14/2006 Intramuscular Injection B-12 Injection Zackary Toledo M.D. 03/24/2006 Injection Injection Subcutaneous Or Zackary Toledo M.D. 03/24/2006 Intramuscular Injection B-12 Injection Zackary Toledo M.D. 02/24/2006 Injection Injection Subcutaneous Or Zackary Toledo M.D. 02/24/2006 Intramuscular Injection B-12 Injection Zackary Toledo M.D. 01/16/2006 Injection Injection Subcutaneous Or Zakcary Toledo M.D. 01/16/2006 Intramuscular Injection B-12 Injection Zackary Toledo M.D. 01/06/2006 Injection Injection Subcutaneous Or Zackary Toledo M.D. 01/06/2006 Intramuscular Injection B-12 Injection Zackary Toldeo M.D. 12/26/2005 Injection Injection Subcutaneous Or Zackary Toledo M.D. 12/26/2005 Intramuscular Injection B-12 Injection Zackary Toledo M.D. 12/19/2005 Injection Injection Subcutaneous Or Zackary Toledo M.D. 12/19/2005 Intramuscular Injection B-12 Injection Zackary Toledo M.D. 11/23/2005 Injection Injection Subcutaneous Or Zackary Toledo M.D. 11/23/2005 Intramuscular Injection B-12 Injection Zackary Toledo M.D. 11/15/2005 Injection Injection Subcutaneous Or Zackary Toledo M.D. 11/15/2005 Intramuscular Injection B-12 Injection Zackary Toledo M.D. 10/21/2005 Injection Injection Subcutaneous Or Zackary Toledo M.D. 10/21/2005 Intramuscular Injection B-12 Injection Zackary Toledo M.D. 10/12/2005 Injection Injection Subcutaneous Or Zackary Toledo M.D. 10/12/2005 Intramuscular Injection B-12 Injection Zackary Toledo M.D. 10/05/2005 Injection Injection Subcutaneous Or Zackary Toledo M.D. 10/05/2005 Intramuscular Injection B-12 Injection Zackary Toledo M.D. 09/23/2005 Injection Injection Subcutaneous Or Zackary Toledo M.D. 09/23/2005 Intramuscular Injection B-12 Injection Zackary Toledo M.D. 09/14/2005 Injection Injection Subcutaneous Or Zackary Toledo M.D. 09/14/2005 Intramuscular Injection B-12 Injection Zackary Toledo M.D. 09/07/2005 Injection Injection Subcutaneous Or Zackary Toledo M.D. 09/07/2005 Intramuscular Injection B-12 Injection Zackary Toledo M.D. 08/22/2005 Injection Injection Subcutaneous Or Zackary Toledo M.D. 08/22/2005 Intramuscular Injection B-12 Injection Zackary Toledo M.D. 08/15/2005 Injection Injection Subcutaneous Or Zackary Toledo M.D. 08/15/2005 Intramuscular Injection B-12 Injection Zackary Toledo M.D. 08/08/2005 Injection Injection Subcutaneous Or Zackary Toledo M.D. 08/08/2005 Intramuscular Injection B-12 Injection Zackary Toledo M.D. 08/01/2005 Injection B-12 Injection Zackary Toledo M.D. 07/21/2005 Injection Injection Subcutaneous Or Zackary Toledo M.D. 07/21/2005 Intramuscular Injection B-12 Injection Zackary Toledo M.D. 07/12/2005 Injection Injection Subcutaneous Or Zackary Toledo M.D. 07/12/2005 Intramuscular Injection B-12 Injection Zackary Toledo M.D. 07/01/2005 Injection Injection Subcutaneous Or Zackary Toledo M.D. 07/01/2005 Intramuscular Injection B-12 Injection Zackary Toledo M.D. 06/25/2005 Injection Injection Subcutaneous Or Zackary Toledo M.D. 06/25/2005 Intramuscular Injection B-12 Injection Zackary Toledo M.D. 06/10/2005 Injection Injection Subcutaneous Or Zackary Toledo M.D. 06/10/2005 Intramuscular Injection B-12 Injection Zackary Toledo M.D. 05/27/2005 Injection Injection Subcutaneous Or Zackary Toledo M.D. 05/27/2005 Intramuscular Injection B-12 Injection Zackary Toledo M.D. 05/13/2005 Injection Injection Subcutaneous Or Zackary Toledo M.D. 05/13/2005 Intramuscular Injection B-12 Injection Zackary Toledo M.D. 05/06/2005 Injection Injection Subcutaneous Or Zackary Toledo M.D. 05/06/2005 Intramuscular Injection B-12 Injection Zacakry Toledo M.D. 04/29/2005 Injection Injection Subcutaneous Or Zackary Toledo M.D. 04/29/2005 Intramuscular Injection B-12 Injection Zackary Toledo M.D. 04/19/2005 Injection Injection Subcutaneous Or Zackary Toledo M.D. 04/19/2005 Intramuscular Injection B-12 Injection Zackary Toledo M.D. 04/04/2005 Injection Injection Subcutaneous Or Zackary Toledo M.D. 04/04/2005 Intramuscular Injection Injection Subcutaneous Or Zackary Toledo M.D. 04/01/2005 Intramuscular Injection B-12 Injection Zackary Toledo M.D. 02/16/2005 Injection Injection Subcutaneous Or Zackary Toledo M.D. 02/16/2005 Intramuscular Injection B-12 Injection Zackary Toledo M.D. 02/10/2005 Injection Injection Subcutaneous Or Zackary Toledo M.D. 02/10/2005 Intramuscular Injection B-12 Injection Zackary Toledo M.D. 02/04/2005 Injection Injection Subcutaneous Or Zackary Toledo M.D. 02/04/2005 Intramuscular Injection B-12 Injection Zackary Toledo M.D. 01/28/2005 Injection Injection Subcutaneous Or Zackary Toledo M.D. 01/28/2005 Intramuscular Injection B-12 Injection Zackary Toledo M.D. 01/20/2005 Injection Injection Subcutaneous Or Zackary Toledo M.D. 01/20/2005 Intramuscular Injection Immunizations CPT Code Status Date Vaccine Lot # [id number] Given 09/04/2019 Influenza Vac, [place] [id number] Given 08/07/2018 Influenza Vac, Quadrivalent, Slit Virus, Im [id number] [id number] Given 10/03/2017 Influenza vac quadrivalent preservative free 6 [id number] months and up 45474 Given 07/27/2016 Influenza Vac, Quadrivalent, Slit Virus, Im [id number] 70236 Given 08/05/2014 DO Not Use Split Influenza Virus Vaccine 59420 Given 10/28/2010 Tdap Tetanus, W Pertussis [id number] 35121 Given 08/23/2006 DO Not Use Split Influenza Virus Vaccine [id number] 73625 Given 08/08/2005 DO Not Use Split Influenza Virus Vaccine [id number] Ordered 08/05/2014 DO Not Use Split Influenza Virus Vaccine Vital Signs Date Vital Result Comment 11/08/2019 2:05pm BP Systolic 116 mmHg BP Diastolic 82 mmHg Heart Rate 82 /min Body Temperature 98.1 F Respiratory Rate 16 /min Weight 216.00 lb 07/11/2019 10:45am BP Systolic 94 mmHg BP Diastolic 78 mmHg Heart Rate 90 /min Body Temperature 97.2 F Weight 207.00 lb Results Description No Information Available Procedures Date Code Description Status 07/23/2019 [id number] Mammogram Completed 11/20/2018 [id number] Colonoscopy Completed 05/18/2017 [id number] Mammogram Completed 12/30/2015 [id number] Mammogram Completed 11/25/2011 [id number] Mammogram Completed 11/09/2010 [id number] Mammogram Completed 02/13/2009 [id number] Mammogram Completed Medical Devices Description No Information Available Encounters Type Date Location Provider Dx Diagnosis Office Visit 11/08/2019 Main Office Kristy Lisa, H92.01 Otalgia, right ear 2:00p [employer] G50.1 Atypical facial pain Assessments Date Code Description Provider 01/16/2020 R05 Cough Kristy Lisa, [facility] 01/16/2020 R06.02 Shortness of breath Kristy Lisa, [facility] 01/16/2020 J06.9 Acute upper respiratory infection, Kristy Lisa, [facility] unspecified 01/16/2020 J01.90 Acute sinusitis, unspecified Kristy Lisa, [facility] 11/08/2019 H92.01 Otalgia, right ear Kristy Lisa, [facility] 11/08/2019 G50.1 Atypical facial pain Kristy Lisa, [facility] Plan of Treatment 01/16/2020 - Kristy Lisa, PR05 OqpgmT39.02 Shortness of dwknfkN51.9 Acute upper respiratory infection, addhcwrcvlzN44.90 Acute sinusitis, unspecifiedAllNew Medication:Albuterol Sulfate (2.5 mg/3ML) 0.083% - admin 1 ampule/vial inhaled via nebulizer machine every 6 hours as needed cough, shortness of breath Functional Status Description No Information Available Mental Status Description No Information Available Referrals Description No Information Available
[2020-01-23 18:56] LABS: ABS Basophils 0.1 10^3/ul (0-0.2); ABS Eosinophils 0.1 10^3/ul (0-0.6); ABS Lymphocytes 1.5 10^3/ul (1.0-4.8); ABS Monocytes 0.5 10^3/ul (0-0.8); ABS Neutrophils 7.4 10^3/ul (1.5-7.7); Eosinophil % 0.6 %; Hematocrit 44 % (35-47); Hemoglobin 14.9 g/dL (12.0-16.0); Lymphocyte % 15.9 %; Mean Corpuscular HGB Conc 34 g/dL (31-36); Mean Corpuscular Hemoglobin 31 pg (27-31); Mean Corpuscular Volume 91 fL (80-97); Mean Platelet Volume 9.2 fL (7.4-10.4); Platelet Count 194 10^3/uL (150-450); Red Blood Count 4.81 10^6 /uL (3.70-4.87); Red Cell Distribution Width 14 % (10-15); White Blood Count 9.6 10^3/uL (3.5-10.8)
[2020-01-23 19:13] LABS: Albumin 4.3 g/dL (3.2-5.2); Albumin/Globulin Ratio 1.5 (1-3); BUN/Creatinine Ratio 17.7 (8-20); Calcium 9.8 mg/dL (8.6-10.3); EGFR African American 72.5 (>60); EGFR Non-African American 59.9 (>60); Globulin 2.9 g/dL (2-4); Total Bilirubin 0.5 mg/dL (0.2-1.0); Total Protein 7.2 g/dL (6.4-8.9)
[2020-01-23 19:32] VITALS: BP 133/88
== END 2020-01-23 19:29 | disposition home or self-care (01) ==
LOC: ED 16:26
DX: R06.02 Shortness of breath (principal); R05 Cough; R53.83 Other fatigue; J40 Bronchitis, not specified as acute or chronic; Z88.6 Allergy status to analgesic agent; F32.9 Major depressive disorder, single episode, unspecified; E03.9 Hypothyroidism, unspecified; R51 Headache; Z79.899 Other long term (current) drug therapy; Z96.659 Presence of unspecified artificial knee joint; Z20.828 Contact with and (suspected) exposure to other viral communicable diseases
CPT/HCPCS: 36415; 71045; 80053; 84484; 85025; 85379; 87635; 93005; 99282